=== PATIENT | male | born 1945 | race Caucasian/White ===

== ENCOUNTER → 2018-09-16 | Outpatient (CLI) | payer MEDICARE, BC ==
--- NOTE | 2018-09-16 12:45 | MR ---
EXAMINATION TYPE: MR shoulder RT wo con DATE OF EXAM: 09/16/2018 11:30 AM COMPARISON: NONE HISTORY: Right shoulder pain TECHNIQUE: Multiplanar multispin echo imaging of the right shoulder was performed. FINDINGS: Rotator cuff : Full thickness retracted tear of the supraspinatus tendon at its critical zone with fl uid filled gap of 2 cm. No evidence for muscular atrophy. Remaining constituents of the rotator cuff are intact. Bursa: Subacromial subdeltoid fluid identified. Musculature: There is no muscular tear, contusion, or atrophy. Acromioclavicular joint : Moderate AC joint arthropathy. Small subacromial spur. Osseous structures : There are no fractures or regions of abnormal bone marrow signal intensity. Long biceps tendon : The biceps tendon is normally situated within the bicipital groove. No complete or partial biceps tendon tear is present. Glenohumeral Joint fluid : There is no glenohumeral joint effusion. Cartilage and Bone : No focal hyaline cartilage defects are noted. No Hill-Sachs, reverse Hill-Sachs, or bony Bankart lesions are seen. Labrum : There are no SLAP or soft tissue Bankart lesions. No paralabral cysts are seen. OTHER FINDINGS : none IMPRESSION: 1. Full thickness retracted tear of the supraspinatus tendon at its critical zone with fluid filled g ap of 2 cm.
== END | disposition home or self-care (01) ==
LOC: RADMRIMAIN 10:41
PROVIDERS: ATTEND Orthopaedic Surgery
DX: M75.121 Complete rotator cuff tear or rupture of right shoulder, not specified as traumatic (principal)

== ENCOUNTER → 2018-11-04 | Day surgery (SDC) | payer MEDICARE, BC ==
[2018-11-01 15:58] VITALS: BMI 28.4
[~2018-11-04] MED LIST: DEXAMETHASONE SOD PHOSPHATE 10 MG/ML 1 ML VIAL IV ONE; DEXAMETHASONE SOD PHOSPHATE 4 MG/ML 1 ML VIAL ONE; HYDROcodone/APAP 7.5-325MG 1 EACH TAB PO ONE; HYDROmorphone 0.5 MG/0.5 ML SYRINGE IVP PRN; LACTATED RINGERS 1,000 ML IV ONE; LACTATED RINGERS 1,000 ML IV SCH; LIDOCAINE 1% 20 ML VIAL (10MG/ML) FOR IV START INTRADERMA PRN; LIDOCAINE 1% INJ 10MG/ML (20 ML MDV) ONE; MELOXICAM 7.5 MG TAB PO ONE; MIDAZOLAM (PF) 2 MG/2 ML VIAL IVP ONE; ONDANSETRON 4 MG/2 ML VIAL IVP ONE; PROPOFOL 10 MG/ML 20 ML VIAL IV ONE; ROPIVACAINE 5 MG/ML 30 ML VIAL ONE; SCOPOLAMINE 1.5MG/72HR PATCH TRANSDERM ONE; SUCCINYLCHOLINE CHLORIDE 100 MG/5 ML SYR IV ONE; ceFAZolin IN SWFI 2 GM/20 ML SYRINGE IVP ONE; ePHEDrine SULFATE/0.9% NACL/PF 50 MG/5 ML SYRINGE IV ONE; fentaNYL (PF) 50 MCG/ML 2 ML AMP ONE
--- NOTE | 2018-11-04 07:57 | P.ONQ ---
Anesthesiology Proc Note - PNB - Peripheral Nerve Block Performed Right Interscalene Single Time Out Performed: Yes Procedure Start Time: 07:05 Procedure Stop Time: 07:10 Indication: Acute Post-Operative Pain, Analgesia, Requested by physician Sedation Type: Sedate with meaningful contact maintained Preparation: Sterile Prep Position: Supine Catheter: None Needle Types: On-Q Needle Size: 50mm (2") Needle Gauge: 21 Technique: Ultrasound Injectate: 0.5% Ropivacaine (see comment for volume) (4mg dexamethasone) Blood Aspirated: No Pain Paresthesia on Injection Noted: No Resistance on Injection: Normal Events: Uneventful and Well Tolerated
--- NOTE | 2018-11-04 10:18 | P.OP ---
Date of Procedure: 11/04/18 Procedure(s) Performed: PREOPERATIVE DIAGNOSES: 1. Right shoulder large retracted rotator cuff tear. 2. Chronic impingement syndrome. 3. Acromioclavicular osteoarthritis. 4. Superior labral degenerative tear 5. Long head biceps tendinopathy. POSTOPERATIVE DIAGNOSES: 1. Right shoulder large retracted rotator cuff tear (supraspinatus and infraspinatus, 2.5 cm, retracted past glenoid with poor posterior leaflet mobility). 2. Chronic impingement syndrome. 3. Acromioclavicular osteoarthritis. 4. Labral degenerative tear. 5. Moderate to severe adhesive capsulitis PROCEDURES PERFORMED: 1. Right shoulder arthroscopy with rotator cuff repair (margin convergence with one anchor, partial repair) 2. Arthroscopic partial distal clavicle excision 3. Arthroscopic lysis of adhesions with capsular release and manipulation under anesthesia 4. Arthroscopic subacromial decompression 5. Arthroscopic debridement superior labral tear ANESTHESIA: General. ESTIMATED BLOOD LOSS: Less than 25 mL TOURNIQUET: None DINING ROOM SERVER: Debra Daily PA-C (assistance with: Positioning, retraction, camera operation, repair, closure, dressing) COMPLICATIONS: None. DISPOSITION: To postanesthesia care unit INDICATIONS: Mr. Jennings is a 73 year old male with a history of large rotator cuff tear. MRI was suspicious for a tear with retraction and cuff atrophy, and the patient wishes to have it repaired. He understands the difficulties associated with repair of a retracted rotator cuff tear and understands that there is the possibility of being unable to fully repair the tear. I have examined the patient in the office and proposed rotator cuff repair via an arthroscopic or mini-open approach, as well as other procedures to optimize the shoulder and outcome, such as decompression of spurs and debridement of loose or degenerated tissue. I have explained the risks of this surgery as being inclusive of, but not limited to: bleeding, infection, scarring, discomfort, blood vessel and/or nerve damage, need for further surgery, stiffness, persistence or worsening of p roblems, , and other risks. The consent form has been completed and signed. PROCEDURE: Appropriate consent was obtained from the patient. The patient was taken to the operating room and placed in the supine position. General anesthesia was initiated and after confirmation of adequate anesthesia, the patients right shoulder was examined. Initial range of motion showed flexion to 140 abduction to 140, external rotation to 30 and internal rotation to 30. Using Codman's paradox maneuver, the right shoulder was gently stretched and final range of motion after the stretch was for flexion to 180 , abduction to 180, external rotation to 75, and internal rotation to 75 with the arm at 90 abduction. The shoulder was stable. Next, the patient was rotated into the lateral decubitus position and stabilized to the table with a vasquez bag and padded straps. Care was taken to make sure that all pressure points were adequately padded. Bear-hugger was used along with bilateral leg sequential compression devices. Prepping and draping was completed in the usual aseptic fashion using ChloraPrep. The patient received intravenous antibiotics prior to incision. The shoulder was suspended from traction with 10 lbs. of weight in a position of 45 degrees abduction. Landmarks were outlined with a skin marking pen. A spinal needle was inserted into the glenohumeral joint and fluid was administered to distend the joint. A posterior portal was created using an 11 blade and the arthroscopic canula, over a dull trocar, was carefully inserted into the joint. Arthroscopy then comm enced. Blood was cleared from the joint from the previous manipulation under anesthesia. An anterior portal was inserted in the rotator interval area using inside-out technique. Biceps tendon showed moderate tendinopathy without full tear. Shaver was used to smooth the degenerated portion of the biceps within the joint. Subscapularis and teres minor attachments were relatively normal, for age. Hyaline cartilage of the glenoid and humeral head showed degenerative changes typical for age. Supraspinatus and infraspinatus attachments showed a full-thickness retracted tear, U-shaped. The anterior undersurface of the acromion could clearly be seen through the rotator cuff defect. No loose bodies were noted in the joint. Labrum showed circumferential degenerative changes without significant instability. Superior labrum was well attached. Negative peel back sign. Loose fibers of labrum in all areas were debrided away back to stable labrum. Capsular release was finished using a co mbination of biting forceps, shaver, and radiofrequency ablator. Synovitis was noted superior to the superior labrum and within the rotator interval. This was debrided and removed where the capsule appeared inflamed, using an arthroscopic shaver. Attention was then directed to the subacromial space. The camera and instruments were redirected into the subacromial space and bursoscopy was perfor med. The patients bursa was inflamed and thickened, indicating chronic bursitis. There also appear to be significant degenerative adhesions present within the lateral gutter anterior gutter and posterior gutter. These adhesions were lysed using a shaver and radiofrequency and attention was paid to meticulous hemostasis with the ArthroCare device. A lateral portal was created using outside-in technique. The rotator cuff tear was noted to be a U-shaped tear, with retraction past the level of the glenoid, with appeared to be a very deficient anterior leaflet. The posterior leaflet was poorly mobile, and therefore using a combination of angled elevator, shaver, and ArthroCare device, the adhesions between the inferior and superior surfaces of the posterior leaflet/conjoined tendon were released however, this did not improve mobility very much. The anterior leaflet was composed of very deficient tissue , without a robust appearance. The loose fibers of the tear were debrided back to stable tissue and the defect in the tendon was repaired arthroscopically after careful preparation of the supraspinatus footprint with gurdeep and rasp to create a good bleeding surface of bone, see below. The undersurface of the acromion had frictional changes consistent with severe and chronic impingement syndrome. The underside of the acromion anteriorly was cleared of soft tissue using an arthroscopic radiofrequency ablator. Care was taken while using the ablator not to exceed 40 degrees Centigrade within the bursa. The frictional changes of the rotator cuff matched exactly the location of the rotator cuff tear in the critical zone. A formal subacromial decompression was performed using a gurdeep. Approximately 5.5 mm of material was removed from the anterior-inferior corner of the acromion. This resection was beveled upwards laterally, and carried to the AC joint. The AC joint appeared arthritic with inferior spurring. This spurring was removed with a gurdeep, co- planing the resection with the acromial resection and removing approximately 5 to 6 mm of inferior distal clavicle maximally. The rotator cuff tear was then repaired as follows. Preparation of the supraspinatus footprint was performed using hand rasps , gurdeep, and shaver. This created a bleeding surface without significant decortication. 2 margin convergence sutures using #2 FiberWire were deployed into the medial portion of the rotator cuff and were tied down using alternating half hitches arthroscopically. This significantly reduced the volume of the tear. Next, the posterior leaflet was repaired using a fiber tape suture deployed into a 4.75 mm swivel lock anchor which was placed in the greater tuberosity. The leaflet was reduced using a tag stitch to mobilize the leaflet as much as possible in a lateral and anterior direction however as previously noted the leaflet had very poor mobility and therefore was not able to fully cover the supraspinatus footprint. Loose cuff material adjacent to the fiber tape was tacked down using the accessory stitch within the anchor. Suture tails were then cut. It was noted that there was incomplete closure of the cuff defect, but the volume of the tear had been significantly reduced and the posterior leaflet appeared to be well stabilized to the greater tuberosity. The repair was stable to rotation. Subsequently, 4-0 Monocryl was used to close the portal holes. Steri-strips were applied as well as sterile dressing. The shoulder was then placed into a sling and the patient was transferred to recovery room in stable condition. Sponge and needle counts were correct.
[2018-11-04 10:20] VITALS: TEMP 97.4
[2018-11-04 12:36] VITALS: BP 127/73; PULSE 49; RESP 17
== END | disposition home or self-care (01) ==
LOC: OR 06:17
PROVIDERS: ATTEND Orthopaedic Surgery
DX: S46.011A Strain of muscle(s) and tendon(s) of the rotator cuff of right shoulder, initial encounter (principal); S43.431A Superior glenoid labrum lesion of right shoulder, initial encounter; M75.41 Impingement syndrome of right shoulder; M75.01 Adhesive capsulitis of right shoulder; E78.5 Hyperlipidemia, unspecified; I73.1 Thromboangiitis obliterans [Buerger's disease]; M19.011 Primary osteoarthritis, right shoulder; Z87.891 Personal history of nicotine dependence; I25.10 Atherosclerotic heart disease of native coronary artery without angina pectoris; I10 Essential (primary) hypertension; K21.9 Gastro-esophageal reflux disease without esophagitis; W03.XXXA Other fall on same level due to collision with another person, initial encounter; Z95.5 Presence of coronary angioplasty implant and graft; I25.2 Old myocardial infarction
CPT/HCPCS: 64415; 29827; 29826; 29824; C1713 ×2; C1894; J1100 ×2; J2405; J2001; J3010; J2795; J0330; J2704; J0690; J2250

== ENCOUNTER 2019-11-13 09:32 | Emergency (ER) | payer MEDICARE, BC ==
[2019-11-13 09:38] VITALS: RESP 18
[2019-11-13] MEDS ORDERED: MORPHINE SULFATE 4 MG/ML SYRINGE IVP STA (09:54)
[2019-11-13] MEDS ORDERED: SODIUM CHLORIDE 0.9% 1,000 ML IV ONE ×2 (09:54→11:32)
--- NOTE | 2019-11-13 10:04 | ED ---
Abdominal Pain HPI - General Chief Complaint: Abdominal Pain Stated Complaint: Sent by pcp Time Seen by Provider: 11/13/19 09:42 Source: patient, RN notes reviewed, old records reviewed Mode of arrival: ambulatory Limitations: no limitations - History of Present Illness Initial Comments: Patient is a 74-year-old male who presents emergency department today for evaluation with complaints of cramping abdominal pain and multiple episodes of diarrhea for the past 2 days. Patient states that he's had no specific fevers. Denies any history of sick contacts or exposure to known Covid contact. Patient reports that he's had no vomiting but is in place some mild nausea. - Related Data Home Medications Medication Instructions Recorded Confirmed Atorvastatin [Lipitor] 80 mg PO HS 05/20/14 11/13/19 Lisinopril [Zestril] 10 mg PO DAILY 05/20/14 11/13/19 Nitroglycerin Sl Tabs [Nitrostat] 0.4 mg SUBLINGUAL Q5H PRN 05/20/14 11/13/19 Aspirin EC [Ecotrin Low Dose] 81 mg PO DAILY 01/31/16 11/13/19 Cholecalciferol [Vitamin D3] 2,000 unit PO DAILY 01/31/16 11/13/19 Donepezil [Aricept] 5 mg PO HS 01/31/16 11/13/19 Omeprazole [PriLOSEC] 20 mg PO AC-BRKFST 11/01/18 11/13/19 Metoprolol Tartrate [Lopressor] 12.5 mg PO BID 11/13/19 11/13/19 Previous Rx's Medication Instructions Recorded Ciprofloxacin HCl [Cipro] 500 mg PO Q12HR 10 Days #20 tab 11/13/19 metroNIDAZOLE [Flagyl] 500 mg PO TID #30 tab 11/13/19 Allergies Allergy/AdvReac Type Severity Reaction Status Date / Time No Known Allergies Allergy Verified 11/13/19 09:35 Review of Systems ROS Statement: Those systems with pertinent positive or pertinent negative responses have been documented in the HPI. ROS Other: All systems not noted in ROS Statement are negative. Past Medical History Past Medical History: Diabetes Mellitus, Hyperlipidemia, Hypertension, Myocard ial Infarction ([place]) Additional Past Medical History / Comment(s): buergers disease, "prediabetic- diet controlled", hx rheumatic fever Last Myocardial Infarction Date:: 2014 History of Any Multi-Drug Resistant Organisms: None Reported Past Surgical History: Appendectomy, Heart Catheterization With Stent, Tonsillectomy Additional Past Surgical History / Comment(s): toe amputation, liver Past Anesthesia/Blood Transfusion Reactions: No Reported Reaction Date of Last Stent Placement:: 2014 Past Psychological History: No Psychological Hx Reported Smoking Status: Former smoker Past Alcohol Use History: None Reported Past Drug Use History: None Reported - Past Family History Son(s) Family Medical History: Cancer Additional Family Medical History / Comment(s): leukemia General Exam - General Exam Comments Initial Comments: General: Well appearing, well nourished, in no distress. Oriented x 3, normal mood and affect . Ambulating without difficulty. Skin: Good turgor, no rash, unusual bruising or prominent lesions Hair: Normal texture and distribution. HEENT: Head: Normocephalic, atraumatic, no visible or palpable masses, depressions, or scaring. Eyes: Visual acuity intact, conjunctiva clear, sclera non-icteric, EOM intact, PERRL. Ears: EACs clear, TMs translucent & cone of light visualized. hearing intact. Nose: No external lesions, mucosa non-inflamed, septum and turbinates normal Mouth: Mucous membranes moist, no mucosal lesions. Teeth/Gums: No obvious caries or periodontal disease. No gingival inflammation or significant resorption. Pharynx: Mucosa non-inflamed, no tonsillar hypertrophy or exudate Neck: Supple, without lesions, bruits, or adenopathy, thyroid non-enlarged and non-tender Heart: No cardiomegaly or thrills; regular rate and rhythm, no murmur or gallop Lungs: Clear to auscultation and percussion Abdomen: Patient has tenderness over the right upper quadrant and left lower quadrant. Back: Spine normal without deformity or tenderness, no CVA tenderness Rectal: Normal sphincter tone, no hemorrhoids or masses palpable Extremities: No amputations or deformities, cyanosis, edema or varicosities, peripheral pulses intact Musculoskeletal: Normal gait and station. No misalignment, asymmetry, crepitation, defects, tenderness, masses, effusions, decreased range of motion, instability, atrophy or abnormal strength or tone in the head, neck, spine, ribs, pelvis or extremities. Neurologic: CN 2-12 normal. Sensation to pain, touch, and proprioception normal. DTRs normal in upper and lower extremities. No pathologic reflexes. Psychiatric: Oriented X3, intact recent and remote memory, judgment and insight, normal mood and affect. Limitations: no limitations Course Vital Signs 11/13/19 11/13/19 09:35 13:26 Temperature 98.2 F 98.0 F Pulse Rate 95 82 Respiratory 18 18 Rate Blood Pressure 134/82 136/77 O2 Sat by Pulse 96 98 Oximetry Medical Decision Making - Medical Decision Making 74-year-old male presents emergency department today for evaluation for cramping abdominal pain, fevers and diarrhea for the past 3 days. Patient has no cough shortness of breath. Family called their concern for possible Crohn flares. He's had no known exposures. Patient does have some right and left lower quadrant tenderness. Patient had labwork obtained. As well as computed tomogra phy scan. Computed tomography scan shows evidence of colitis, an enlarged prostate. Correlating for cystitis. UA shows no signs of infection. Patient will be started on Cipro and Flagyl for concern for colitis. Chest x-ray was reviewed and unremarkable and patient's labs were showed mild leukocytosis but no other inflammatory changes normal lactic acid and She panel is unremarkable. I advised Patient to call have close follow-up with primary care physician and return parameters were discussed. - Lab Data Result diagrams: 11/13/19 10:01 11/13/19 10:01 Lab Results 11/13/19 11/13/19 11/13/19 Range/Units 10:01 10:01 10:01 WBC 12.6 H (3.8-10.6) k/uL RBC 5.42 (4.30-5.90) m/uL Hgb 15.7 (13.0-17.5) gm/dL Hct 48.4 (39.0-53.0) % MCV 89.3 (80.0-100.0) fL MCH 28.9 (25.0-35.0) pg MCHC 32.4 (31.0-37.0) g/dL RDW 13.4 (11.5-15.5) % Plt Count 225 (150-450) k/uL Neutrophils % 80 % Lymphocytes % 10 % Monocytes % 7 % Eosinophils % 1 % Basophils % 0 % Neutrophils # 10.1 H (1.3-7.7) k/uL Lymphocytes # 1.2 (1.0-4.8) k/uL Monocytes # 0.9 (0-1.0) k/uL Eosinophils # 0.1 (0-0.7) k/uL Basophils # 0.0 (0-0.2) k/uL PT 10.7 (9.0-12.0) sec INR 1.0 (<1.2) APTT 22.3 (22.0-30.0) sec Sodium 137 (137-145) mmol/L Potassium 4.1 (3.5-5.1) mmol/L Chloride 102 (98-107) mmol/L Carbon Dioxide 24 (22-30) mmol/L Anion Gap 11 mmol/L BUN 21 H (9-20) mg/dL Creatinine 1.08 (0.66-1.25) mg/dL Est GFR (CKD-EPI)AfAm 78 (>60 ml/min/1.73 sqM) Est GFR (CKD-EPI)NonAf 67 (>60 ml/min/1.73 sqM) Glucose 116 H (74-99) mg/dL Calcium 9.2 (8.4-10.2) mg/dL Magnesium 2.0 (1.6-2.3) mg/dL Total Bilirubin 1.1 (0.2-1.3) mg/dL AST 33 (17-59) U/L ALT 28 (4-49) U/L Alkaline Phosphatase 64 (38-126) U/L Total Protein 7.5 (6.3-8.2) g/dL Albumin 4.4 (3.5-5.0) g/dL Amylase 51 (30-110) U/L Lipase 54 (23-300) U/L Urine Color Urine Appearance (Clear) Urine pH (5.0-8.0) Ur Specific [place] (1.001-1.035) Urine Protein (Negative) Urine Glucose (UA) (Negative) Urine Ketones (Negative) Urine Blood (Negative) Urine Nitrite (Negative) Urine Bilirubin (Negative) Urine Urobilinogen (<2.0) mg/dL Ur Leukocyte Esterase (Negative) Coronavirus (PCR) (Not Detected) 11/13/19 11/13/19 Range/Units 11:43 12:55 WBC (3.8-10.6) k/uL RBC (4.30-5.90) m/uL Hgb (13.0-17.5) gm/dL Hct (39.0-53.0) % MCV (80.0-100.0) fL MCH (25.0-35.0) pg MCHC (31.0-37.0) g/dL RDW (11.5-15.5) % Plt Count (150-450) k/uL Neutrophils % % Lymphocytes % % Monocytes % % Eosinophils % % Basophils % % Neutrophils # (1.3-7.7) k/uL Lymphocytes # (1.0-4.8) k/uL Monocytes # (0-1.0) k/uL Eosinophils # (0-0.7) k/uL Basophils # (0-0.2) k/uL PT (9.0-12.0) sec INR (<1.2) APTT (22.0-30.0) sec Sodium (137-145) mmol/L Potassium (3.5-5.1) mmol/L Chloride (98-107) mmol/L Carbon Dioxide (22-30) mmol/L Anion Gap mmol/L BUN (9-20) mg/dL Creatinine (0.66-1.25) mg/dL Est GFR (CKD-EPI)AfAm (>60 ml/min/1.73 sqM) Est GFR (CKD-EPI)NonAf (>60 ml/min/1.73 sqM) Glucose (74-99) mg/dL Calcium (8.4-10.2) mg/dL Magnesium (1.6-2.3) mg/dL Total Bilirubin (0.2-1.3) mg/dL AST (17-59) U/L ALT (4-49) U/L Alkaline Phosphatase (38-126) U/L Total Protein (6.3-8.2) g/dL Albumin (3.5-5.0) g/dL Amylase (30-110) U/L Lipase (23-300) U/L Urine Color Yellow Urine Appearance Clear (Clear) Urine pH 5.5 (5.0-8.0) Ur Specific [place] >1.050 H (1.001-1.035) Urine Protein Trace H (Negative) Urine Glucose (UA) Negative (Negative) Urine Ketones Trace H (Negative) Urine Blood Negative (Negative) Urine Nitrite Negative (Negative) Urine Bilirubin Negative (Negative) Urine Urobilinogen <2.0 (<2.0) mg/dL Ur Leukocyte Esterase Negative (Negative) Coronavirus (PCR) Not Detected (Not Detected) 11/13/19 10:16 EKG performed at 1008 shows normal sinus rhythm, rate block. Abnormal ECG. Ventricular rate of 83 beats right.. Was 168 ms. She jain is 140 ms. QT QTc is 414/46 ms. - Radiology Data Radiology results: report reviewed CT shows correlate for colitis and diverticulosis. Prostatic enlargement. Possible chronic lateral outlet obstruction changes. Correlate to exclude cystitis. Disc herniation and there is degenerative changes and visualized spine. Dr. Tk Morris. Disposition Clinical Impression: Colitis Disposition: HOME SELF-CARE Condition: Good Instructions (If sedation given, give patient instructions): Colitis (ED) Additional Instructions: Patient is a clear liquid diet for the next day and then advance to bananas rice applesauce and toast diet. Follow-up with PCP. Return to emergency department if any alarming signs or symptoms occur. Prescriptions: Ciprofloxacin HCl [Cipro] 500 mg PO Q12HR 10 Days #20 tab metroNIDAZOLE [Flagyl] 500 mg PO TID #30 tab Is patient prescribed a controlled substance at d/c from ED?: No Referrals: Guanaco Brown MD [Primary Care Provider] - 1-2 days Time of Disposition: 12:45
[2019-11-13 10:14] LABS: Basophils % (A) 0 %; Eosinophils # (A) 0.1 k/uL (0-0.7); Eosinophils % (A) 1 %; HCT 48.4 % (39.0-53.0); HGB 15.7 gm/dL (13.0-17.5); Lymphocytes # (A) 1.2 k/uL (1.0-4.8); Lymphocytes % (A) 10 %; MCH 28.9 pg (25.0-35.0); MCHC 32.4 g/dL (31.0-37.0); MCV 89.3 fL (80.0-100.0); Mean Platelet Volume 8.2; Monocytes # (A) 0.9 k/uL (0-1.0); Monocytes % (A) 7 %; Neutrophils # (A) 10.1 k/uL (1.3-7.7); Neutrophils % (A) 80 %; Platelet Count 225 k/uL (150-450); RBC 5.42 m/uL (4.30-5.90); RDW 13.4 % (11.5-15.5); WBC 12.6 k/uL (3.8-10.6)
[2019-11-13 10:24] LABS: Albumin 4.4 g/dL (3.5-5.0); Calcium 9.2 mg/dL (8.4-10.2); Partial Thromboplastin Time 22.3 sec (22.0-30.0); Potassium 4.1 mmol/L (3.5-5.1); Prothrombin Time 10.7 sec (9.0-12.0); Total Bilirubin 1.1 mg/dL (0.2-1.3); Total Protein 7.5 g/dL (6.3-8.2)
--- NOTE | 2019-11-13 11:19 | CT ---
EXAMINATION TYPE: CT abdomen pelvis w con DATE OF EXAM: 11/13/2019 COMPARISON: CT dated 01/31/2016 HISTORY: diarrhea CT DLP: 657.3 mGycm Automated exposure control for dose reduction was used. TECHNIQUE: Helical acquisition of images from the lung bases through the pelvis have been completed. CONTRAST: Performed without Oral Contrast and with IV Contrast, patient injected with 100 mL of Isovue 300. FINDINGS: LUNG BASES: No significant abnormality is appreciated. AORTA: Atheromatous changes are present in the aortoiliac distribution.. LIVER/GB: No significant interval change is appreciated. PANCREAS: No significant abnormality is seen. SPLEEN: No significant abnormality is seen. ADRENALS: No significant abnormality is seen. KIDNEYS: No significant abnormality is seen. REPRODUCTIVE ORGANS: Prostate shows some associated calcification and is enlarged. BOWEL: Fluid content noted in small and large bowel, question some colonic wall thickening along the ascending colon and transverse colon. Diverticular change noted within the sigmoid colon. FREE AIR: No Free Air visible. ASCITES: None visible. PELVIC ADENOPATHY: None visualized. RETROPERITONEAL ADENOPATHY: No Retroperitoneal Adenopathy visible. URINARY BLADDER: Urinary bladder shows a thickened wall possibly due to chronic outlet obstruction, correlate to exclude cystitis. OSSEOUS STRUCTURES: Degenerative disc changes are present in the lumbar spine. Suspect disc herniati on at the left neural foramen L5-S1.. IMPRESSION: CORRELATE FOR POSSIBLE COLITIS. DIVERTICULOSIS. PROSTHETIC ENLARGEMENT, POSSIBLE CHRONIC LATERAL OUTL ET OBSTRUCTION CHANGE. CORRELATE TO EXCLUDE CYSTITIS. POSSIBLE DISC HERNIATION, THERE ARE DEGENERATIV E DISC CHANGES PRESENT IN THE VISUALIZED SPINE.
[2019-11-13 12:04] LABS: Appearance,Urine Clear (Clear); Bilirubin,Urine Negative (Negative); Blood,Urine Negative (Negative); Color,Urine Yellow; Glucose,Urine (UA) Negative (Negative); Ketones,Urine Trace (Negative); Leukocyte Esterase,Urine Negative (Negative); Nitrite,Urine Negative (Negative); PH, Urine 5.5 (5.0-8.0); Protein,Urine Trace (Negative); Urobilinogen,Urine <2.0 mg/dL (<2.0)
[2019-11-13 12:24] LABS: Specific Gravity,Urine >1.050 (1.001-1.035)
[2019-11-13] MEDS ORDERED: metroNIDAZOLE 500 MG TAB PO STA (12:51)
[2019-11-13] MEDS ORDERED: CIPROFLOXACIN HCL 500 MG TAB PO STA (12:51)
--- NOTE | 2019-11-13 13:10 | XR ---
EXAMINATION TYPE: XR chest 2V DATE OF EXAM: 11/13/2019 COMPARISON: Prior chest x-ray 05/20/2014 HISTORY: pain, body aches, diarrhea TECHNIQUE: Frontal and lateral views of the chest are obtained. FINDINGS: There is no focal air space opacity, pleural effusion, or pneumothorax seen. The cardiac silhouette size is within normal limits. The osseous structures are intact. Prominent lung lines co uld be indicative of underlying COPD. IMPRESSION: No acute cardiopulmonary process.
[2019-11-13 13:28] VITALS: BP 136/77; PULSE 82; TEMP 98
== END 2019-11-13 13:28 | disposition home or self-care (01) ==
LOC: EC 09:32
DX: K52.9 Noninfective gastroenteritis and colitis, unspecified (principal); E11.9 Type 2 diabetes mellitus without complications; E78.5 Hyperlipidemia, unspecified; I10 Essential (primary) hypertension; I25.2 Old myocardial infarction; Z79.899 Other long term (current) drug therapy; Z79.82 Long term (current) use of aspirin; Z87.891 Personal history of nicotine dependence; Z80.6 Family history of leukemia; Z11.59 Encounter for screening for other viral diseases; Z90.49 Acquired absence of other specified parts of digestive tract; Z90.89 Acquired absence of other organs; Z95.5 Presence of coronary angioplasty implant and graft
CPT/HCPCS: 36415; 93005; 80053; 82150; 83690; 83735; 85025; 85610; 85730; 81003; 71046; 74177; 99285; 96374; 96361 ×2; U0003; J2270; Q9967

== ENCOUNTER → 2020-02-05 | Outpatient (CLI) | payer BC, MEDICARE ==
--- NOTE | 2020-02-05 09:42 | US ---
EXAMINATION TYPE: US duplex aorta DATE OF EXAM: 02/05/2020 COMPARISON: CT 2019 CLINICAL HISTORY: Z13.6 Abdominal Aorta Aneurysm Screening. Lower abdomen pain EXAM MEASUREMENTS: Abdominal Aorta: Proximal: 2.3 x 2.3cm Mid: 1.7 x 1.8cm Distal: 1.4 x 1.7cm Right Iliac: 1.0 x 1.0cm Left Iliac: 1.0 x 1.0cm IMPRESSION: 1. Aorta tapers normally through its visualized course. No aneurysmal dilatation is evident.
== END | disposition home or self-care (01) ==
LOC: RADUSWWP 07:00
PROVIDERS: ATTEND Physician Assistant
DX: Z13.6 Encounter for screening for cardiovascular disorders (principal)
CPT/HCPCS: 93979

== ENCOUNTER → 2021-04-28 | Outpatient (CLI) | payer MEDICARE ==
[2021-04-28 16:32] LABS: ALT 32 U/L (10-49); AST 28 U/L (14-35); Chol/HDL Ratio 3.28 Ratio; LDL Cholesterol,Calculated 49.3 mg/dL (0.0-131.0); VLDL Calculation 19.48 mg/dL (5.00-40.00)
== END | disposition home or self-care (01) ==
LOC: LABWHC1 09:43
PROVIDERS: ATTEND Internal Medicine
DX: E78.2 Mixed hyperlipidemia (principal)
CPT/HCPCS: 36415; 80061; 84450; 84460

== ENCOUNTER 2022-06-15 14:55 | Observation (INO) | payer MEDICARE ==
[2022-06-15] MEDS ORDERED: SODIUM CHLORIDE 0.9% 500 ML 500 ML IV STA (15:04)
[2022-06-15 15:08] LABS: Glucose,Whole Blood 107 mg/dL (70-110)
--- NOTE | 2022-06-15 15:10 | ED ---
General Adult HPI - General Chief complaint: Neuro Symptoms/Deficit Stated complaint: Near syncope Time Seen by Provider: 06/15/22 15:00 Source: patient, family, RN notes reviewed, old records reviewed Mode of arrival: ambulatory Limitations: no limitations - History of Present Illness Initial comments: This is a 76-year-old male who presents to the emergency part in stating he was working on a carburetor when he got very lightheaded and knew we had to sit down or else he would fall down. Patient states she started having left sided posterior neck pain that radiating into his head and he started having a severe left-sided headache. Patient states he never actually passed out but for a minute he thought he might. Patient denies any numbness or weakness. Patient denies slurred speech. Patient always has a droopy right eyelid which she state s was there since . Patient's states that he has a slight droop to his smile which is not normally there. Patient denies any recent fever chills or cough per patient has any abdominal pain patient nausea vomiting diarrhea. Patient denies feeling dizzy now or having any near syncopal experience currently - Related Data Home Medications Medication Instructions Recorded Confirmed Atorvastatin [Lipitor] 80 mg PO HS 05/20/14 06/15/22 Aspirin EC [Ecotrin Low Dose] 81 mg PO DAILY 01/31/16 06/15/22 Donepezil [Aricept] 5 mg PO HS 01/31/16 06/15/22 Omeprazole [PriLOSEC] 20 mg PO DAILY 11/01/18 06/15/22 Tamsulosin HCl [Flomax] 0.4 mg PO BID 06/15/22 06/15/22 cilostazoL [Pletal] 100 mg PO BID 06/15/22 06/15/22 lisinopriL [Zestril] 10 mg PO DAILY 06/15/22 06/15/22 Allergies Allergy/AdvReac Type Severity Reaction Status Date / Time No Known Allergies Allergy Verified 11/13/19 09:35 Review of Systems ROS Statement: Those systems with pertinent positive or pertinent negative responses have been documented in the HPI. ROS Other: All systems not noted in ROS Statement are negative. Past Medical History Past Medical History: Diabetes Mellitus, Hyperlipidemia, Hypertension, Myocardial Infarction ([place]) Additional Past Medical History / Comment(s): buergers disease, "prediabetic- diet controlled", hx rheumatic fever Last Myocardial Infarction Date:: 2014 History of Any Multi-Drug Resistant Organisms: None Reported Past Surgical History: Appendectomy, Heart Catheterization With Stent, Tonsille ctomy Additional Past Surgical History / Comment(s): toe amputation, liver Past Anesthesia/Blood Transfusion Reactions: No Reported Reaction Date of Last Stent Placement:: 2014 Past Psychological History: No Psychological Hx Reported Past Alcohol Use History: None Reported Past Drug Use History: None Reported - Past Family History Son(s) Family Medical History: Cancer Additional Family Medical History / Comment(s): leukemia General Exam - General Exam Comments Initial Comments: GENERAL: Patient is well-developed and well-nourished. Patient is nontoxic and well- hydrated and is in mild distress. ENT: Neck is soft and supple. No significant lymphadenopathy is noted. Oropharynx is clear. Moist mucous membranes. Neck has full range of motion without eliciting any pain. EYES: The sclera were anicteric and conjunctiva were pink and moist. Extraocular movements were intact and pupils were equal round and reactive to light. Eyelids were unremarkable. PULMONARY: Unlabored respirations. Good breath sounds bilaterally. No audible rales rhonchi or wheezing was noted. CARDIOVASCULAR: There is a regular rate and rhythm without any murmurs gallops or rubs. ABDOMEN: Soft and nontender with normal bowel sounds. SKIN: Skin is clear with no lesions or rashes and otherwise unremarkable. NEUROLOGIC: Patient is alert and oriented x3. Patient has a little bit of facial droop at the right lip. Motor and sensory are also intact. Normal speech, volume and content. Symmetrical smile. Cerebellar exam grossly intact. Patient's NIH is 1 MUSCULOSKELETAL: Normal extremities with adequate strength and full range of motion. No lower extremity swelling or edema. No calf tenderness. LYMPHATICS: No significant lymphadenopathy is noted PSYCHIATRIC: Normal psychiatric evaluation. Limitations: no limitations Course Vital Signs 06/15/22 06/15/22 06/15/22 15:02 15:05 15:15 Temperature 97.9 F 97.9 F Pulse Rate 111 H 96 Respiratory 20 16 Rate Blood Pressure 123/68 170/87 O2 Sat by Pulse 96 97 Oximetry 06/15/22 06/15/22 06/15/22 15:30 16:30 17:30 Temperature Pulse Rate 87 80 92 Respiratory 18 26 H 18 Rate Blood Pressure 112/60 139/69 141/98 O2 Sat by Pulse 95 95 95 Oximetry 06/15/22 06/15/22 18:00 20:01 Temperature Pulse Rate 78 83 Respiratory 16 18 Rate Blood Pressure 135/72 111/46 O2 Sat by Pulse 94 L 94 L Oximetry Medical Decision Making - Medical Decision Making EKG is interpreted by myself. EKG shows a sinus rhythm at 97 bpm SD interval 280 QRSs 146 QT interval is 421 QTC is 476. Patient's EKG shows a left bundle branch block. When patient arrived this was paged out as a code alteplase Was pt. sent in by a medical professional or institution (, PA, CITY MAINTENANCE MANAGER, urgent care, hospital, or [place] health care facility...) When possible be specific @ -No Did you speak to anyone other than the patient for history (EMS, parent, family, police, friend...)? What history was obtained from this source @ - contributed to history by describing his baseline and changes she is seeing currently Did you review nursing and triage notes (agree or disagree)? Why? @ -I reviewed and agree with nursing and triage notes Were old charts reviewed (outside hosp., previous admission, EMS record, old EKG, old radiological studies, urgent care reports/EKG's, [place] health care facility records)? Report findings @ -No old charts were reviewed Differential Diagnosis (chest pain, altered mental status, abdominal pain women, abdominal pain men, vaginal bleeding, weakness, fever, dyspnea, syncope, headache, dizziness, GI bleed, back pain, seizure, CVA, palpatations, mental health)? @ -Differential Headache: Migraine, tension, cluster, carbon monoxide, central venous thrombosis, pension karma temporal arteritis, acute closure glaucoma, intercranial hemorrhage, mastoiditis, sinusitis, head injury, this is not meant to be an all-inclusive list. EKG interpreted by me (3pts min.). @ -As above X-rays interpreted by me (1pt min.). @ -Chest x-ray shows no acute abnormality and was interpreted by me. CT interpreted by me (1pt min.). @ -CT of the brain was read by me showed no acute abnormality. CT of the head and neck was interpreted by the radiologist and they saw no acute caused the patient's symptoms at this time U/S interpreted by me (1pt. min.). @ -None done What testing was considered but not performed or refused? (CT, X-rays, U/S, labs)? Why? @ - What meds were considered but not given or refused? Why? @ -Alteplase WAS considered initially however the patient's NIH was only 1 and then eventually the NH went to 0 and I decided not to do alteplase in cons ultation with the neurointerventionalist Did you discuss the management of the patient with other professionals (professionals i.e. , PA, CITY MAINTENANCE MANAGER, lab, RT, psych nurse, social security specialist, wanigan clerk, teacher, associate loan officer, employment evaluator/case manager)? Give summary @ -The neurointerventionalist as well as sound physician's I agreed to admit the patient admitted the patient consult the neurology Was smoking cessation discussed for >3mins.? @ -No Was critical care preformed (if so, how long)? @ -No Were there social determinants of health that impacted care today? How? (Homelessness, low income, unemployed, alcoholism, drug addiction, transportation, low edu. Level, literacy, decrease access to med. care, half-way, rehab)? @ -No Was there de-escalation of care discussed even if they declined (Discuss DNR or withdrawal of care, Hospice)? DNR status @ -No What co-morbidities impacted this encounter? (DM, HTN, Smoking, COPD, CAD, Cancer, CVA, ARF, Chemo, Hep., AIDS, mental health diagnosis, sleep apnea, morbi d obesity)? @ -None Was patient admitted / discharged? Hospital course, mention meds given and route, prescriptions, significant lab abnormalities, going to OR and other pertinent info. @ -Patient will be admitted. Patient did get a CT CTA. Patient's symptoms completely resolved in the emergency department. I spoke the neurointerventiona list he did not want alteplase and I was in agreement with this. I eventually spoke with sound physician's after all the scans and labs were done and admitted the patient. I consult the neurology Undiagnosed new problem with uncertain prognosis? @ -No Drug Therapy requiring intensive monitoring for toxicity (Heparin, Nitro, Insulin, Cardizem)? @ -No Were any procedures done? @ -No Diagnosis/symptom? @ -TIA Acute, or Chronic, or Acute on Chronic? @ -Acute Uncomplicated (without systemic symptoms) or Complicated (systemic symptoms)? @ -Complicated Side effects of treatment? @ -No Exacerbation, Progression, or Severe Exacerbation? @ -No Poses a threat to life or bodily function? How? (Chest pain, USA, ME, pneumonia, PE, COPD, DKA, ARF, appy, cholecystitis, CVA, Diverticulitis, Homicidal, Suicidal, threat to staff... and all critical care pts) @ -As this poses a threat to bile function in life. Diagnosis/symptom? @ -Syncope Acute, or Chronic, or Acute on Chronic? @ -Acute Uncomplicated (without systemic symptoms) or Complicated (systemic symptoms)? @ -Complicated Side effects of treatment? @ -none Exacerbation, Progression, or Severe Exacerbation] @ -no Poses a threat to life or bodily function? @ -no - Lab Data Result diagrams: 06/15/22 14:59 06/15/22 14:59 Lab Results 06/15/22 06/15/22 06/15/22 Range/Units 14:59 14:59 14:59 WBC 11.6 H (3.8-10.6) k/uL RBC 5.16 (4.30-5.90) m/uL Hgb 15.2 (13.0-17.5) gm/dL Hct 45.1 (39.0-53.0) % MCV 87.5 (80.0-100.0) fL MCH 29.4 (25.0-35.0) pg MCHC 33.6 (31.0-37.0) g/dL RDW 13.1 (11.5-15.5) % Plt Count 230 (150-450) k/uL MPV 8.5 Neutrophils % 78 % Lymphocytes % 12 % Monocytes % 6 % Eosinophils % 1 % Basophils % 0 % Neutrophils # 9.1 H (1.3-7.7) k/uL Lymphocytes # 1.4 (1.0-4.8) k/uL Monocytes # 0.7 (0-1.0) k/uL Eosinophils # 0.1 (0-0.7) k/uL Basophils # 0.0 (0-0.2) k/uL PT 10.2 (9.0-12.0) sec INR 1.0 (<1.2) APTT 22.9 (22.0-30.0) sec Sodium 138 (137-145) mmol/L Potassium 4.4 (3.5-5.1) mmol/L Chloride 104 (98-107) mmol/L Carbon Dioxide 26 (22-30) mmol/L Anion Gap 8 mmol/L BUN 22 H (9-20) mg/dL Creatinine 1.40 H (0.66-1.25) mg/dL Est GFR (CKD-EPI)AfAm 56 (>60 ml/min/1.73 sqM) Est GFR (CKD-EPI)NonAf 49 (>60 ml/min/1.73 sqM) Glucose 119 H (74-99) mg/dL POC Glucose (mg/dL) (70-110) mg/dL POC Glu Network Security Engineer ID Calcium 9.6 (8.4-10.2) mg/dL Total Bilirubin 0.9 (0.2-1.3) mg/dL AST 37 (17-59) U/L ALT 35 (4-49) U/L Alkaline Phosphatase 85 (38-126) U/L Troponin I (0.000-0.034) ng/mL Total Protein 7.8 (6.3-8.2) g/dL Albumin 4.8 (3.5-5.0) g/dL 06/15/22 06/15/22 Range/Units 14:59 15:07 WBC (3.8-10.6) k/uL RBC (4.30-5.90) m/uL Hgb (13.0-17.5) gm/dL Hct (39.0-53.0) % MCV (80.0-100.0) fL MCH (25.0-35.0) pg MCHC (31.0-37.0) g/dL RDW (11.5-15.5) % Plt Count (150-450) k/uL MPV Neutrophils % % Lymphocytes % % Monocytes % % Eosinophils % % Basophils % % Neutrophils # (1.3-7.7) k/uL Lymphocytes # (1.0-4.8) k/uL Monocytes # (0-1.0) k/uL Eosinophils # (0-0.7) k/uL Basophils # (0-0.2) k/uL PT (9.0-12.0) sec INR (<1.2) APTT (22.0-30.0) sec Sodium (137-145) mmol/L Potassium (3.5-5.1) mmol/L Chloride (98-107) mmol/L Carbon Dioxide (22-30) mmol/L Anion Gap mmol/L BUN (9-20) mg/dL Creatinine (0.66-1.25) mg/dL Est GFR (CKD-EPI)AfAm (>60 ml/min/1.73 sqM) Est GFR (CKD-EPI)NonAf (>60 ml/min/1.73 sqM) Glucose (74-99) mg/dL POC Glucose (mg/dL) 107 (70-110) mg/dL POC Glu Network Security Engineer ID [place], Eddie Calcium (8.4-10.2) mg/dL Total Bilirubin (0.2-1.3) mg/dL AST (17-59) U/L ALT (4-49) U/L Alkaline Phosphatase (38-126) U/L Troponin I 0.034 (0.000-0.034) ng/mL Total Protein (6.3-8.2) g/dL Albumin (3.5-5.0) g/dL Critical Care Time Critical Care Time: Yes Total Critical Care Time: 35 Disposition Clinical Impression: Transient cerebral ischemia, Syncope Disposition: ADMITTED IP TO THIS [facility] Time of Disposition: 19:33
[2022-06-15 15:22] LABS: Basophils % (A) 0 %; Eosinophils # (A) 0.1 k/uL (0-0.7); Eosinophils % (A) 1 %; HCT 45.1 % (39.0-53.0); HGB 15.2 gm/dL (13.0-17.5); Lymphocytes # (A) 1.4 k/uL (1.0-4.8); Lymphocytes % (A) 12 %; MCH 29.4 pg (25.0-35.0); MCHC 33.6 g/dL (31.0-37.0); MCV 87.5 fL (80.0-100.0); Mean Platelet Volume 8.5; Monocytes # (A) 0.7 k/uL (0-1.0); Monocytes % (A) 6 %; Neutrophils # (A) 9.1 k/uL (1.3-7.7); Neutrophils % (A) 78 %; Platelet Count 230 k/uL (150-450); RBC 5.16 m/uL (4.30-5.90); RDW 13.1 % (11.5-15.5); WBC 11.6 k/uL (3.8-10.6)
--- NOTE | 2022-06-15 15:29 | CT ---
EXAMINATION TYPE: CT brain wo con for TPA CT DLP: 1154.6 mGycm, Automated exposure control for dose reduction was used. DATE OF EXAM: 06/15/2022 3:19 PM COMPARISON: None. CLINICAL INDICATION:Male, 76 years old with history of Neuro deficit, acute, stroke suspected, Code s troke code alteplase Rt side facial droop TECHNIQUE: Brain: Axial CT images of the brain were obtained with coronal and sagittal reformats created and rev iewed. Contrast used: None. Oral contrast used: None. FINDINGS: Brain: Extra-axial spaces: No abnormal extra-axial fluid collections. 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 Ventricular system: Within normal limits. Cerebral parenchyma: No acute intraparenchymal hemorrhage or mass effect. The jose-white junction is well differentiated. Scattered hypoattenuating areas are seen within the white matter. Cerebellum: Unremarkable. Mass effect: No evidence of midline shift. Intracranial vasculature: Atherosclerotic calcifications of the intracranial vessels. Soft tissues: Normal. Calvarium/osseous structures: No depressed skull fracture. Paranasal sinuses and mastoid air cells: Mild scattered paranasal sinus disease. Visualized orbits: Orbital contents are intact. Findings communicated to Dr. Doyle Moreno MD on 06/15/2022 3:[address] Bulmaro Thomas. IMPRESSION: 1. No acute intracranial process. 2. Nonspecific white matter changes, likely secondary to chronic small vessel ischemic disease.
[2022-06-15 15:35] LABS: Partial Thromboplastin Time 22.9 sec (22.0-30.0); Prothrombin Time 10.2 sec (9.0-12.0)
[2022-06-15 15:47] LABS: Albumin 4.8 g/dL (3.5-5.0); Calcium 9.6 mg/dL (8.4-10.2); Potassium 4.4 mmol/L (3.5-5.1); Total Bilirubin 0.9 mg/dL (0.2-1.3); Total Protein 7.8 g/dL (6.3-8.2)
--- NOTE | 2022-06-15 15:59 | CT ---
EXAMINATION TYPE: CT angio head neck CT DLP: 587 mGycm, Automated exposure control for dose reduction was used. DATE OF EXAM: 06/15/2022 3:33 PM COMPARISON: CT head same day. CLINICAL INDICATION:Male, 76 years old with history of Neuro deficit, acute, stroke suspected TECHNIQUE: Axially acquired helical CT angiogram of the head and neck was obtained with contrast. Axi al images are supplemented with 3D reconstructions which were post-processed at an independent [facility]st [facility]. NASCET criteria used. Contrast used:100 cc of Isovue-370 Oral contrast used: None. FINDINGS: CTA HEAD: No evidence of acute intracranial hemorrhage, mass effect, or midline shift. The ventricles, sulci, a nd cisterns are unremarkable. The visualized portions of the internal carotid arteries, middle cerebral arteries, anterior cerebral arteries, and posterior cerebral arteries are patent. Atherosclerosis of the intracranial internal c arotid arteries without hemodynamically significant stenosis. The basilar and vertebral arteries are patent. Minimal intracranial vertebral artery calcified athero sclerosis. The left vertebral artery is dominant. CTA NECK: Right Carotid System: The common carotid artery and external carotid artery are patent. The carotid bifurcation demonstrate s calcified plaque with 25% stenosis. The remaining portions of the internal carotid artery demonstra te normal size without significant narrowing. Left Carotid System: The common carotid artery and external carotid artery are patent. The carotid bifurcation demonstrate s calcified plaque with 25% stenosis. The remaining portions of the internal carotid artery demonstra te normal size without significant narrowing. Vertebral arteries are patent without evidence hemodynamically significant stenosis. There is a three-vessel aortic arch. The origins of the great vessels are patent. No evidence of hemo dynamically significant stenosis. IMPRESSION: 1. No evidence of dissection of the cervical internal carotid arteries or vertebral arteries. 2. No evidence of intracranial high-grade stenosis or intracranial aneurysm. 3. Predominantly calcified atherosclerosis at the carotid bifurcations with 25% stenosis bilaterally.
--- NOTE | 2022-06-15 16:00 | XR ---
EXAMINATION TYPE: XR chest 2V DATE OF EXAM: 06/15/2022 3:56 PM COMPARISON: Chest radiographs from 11/13/2019 TECHNIQUE: XR chest 2V Frontal and lateral views of the chest. CLINICAL INDICATION:Male, 76 years old with history of altered mental status; FINDINGS: Lungs/Pleura: Low lung volumes are present. There is no evidence of pleural effusion, focal consolida tion, or pneumothorax. Pulmonary vascularity: Unremarkable. Heart/mediastinum: Cardiomediastinal silhouette is unremarkable. Musculoskeletal: No acute osseous pathology. IMPRESSION: No acute cardiopulmonary disease/process.
[2022-06-15] MEDS: ATORVASTATIN 80 MG TAB PO SCH (20:38)
[2022-06-15] MEDS ORDERED: SODIUM CHLORIDE 0.9% 1,000 ML IV ONE (22:49)
[2022-06-15] MEDS: SODIUM CHLORIDE 0.9% 1,000 ML IV SCH (23:02)
--- NOTE | 2022-06-16 02:16 | P.HPIM ---
History of Present Illness H&P Date: 06/15/22 Chief Complaint: lightheaded and dizzy 76 year old male with h/o CAD s/p stents, PAD patient was doing some work in his garage, when felt lightheaded and about to black out couple times during the day , he admits that he always exhaust himself and goes without food and drink for extended periods. he eventually got very dizzy and lightheaded, felt warm and decided to sit down, thats when he thinks he might have passes out for few seconds. he denies falling , or head injury , denies any palpitations, SOB, chest pain , denies falling on the ground, he does not think he had a seizure , denies any similar events in the past, he denies any tongue biting , loss of bladder or bowel control. patient then started experiencing headache, and left sided neck pain, he denies any focal neuro deficits, denies any weakness, numbness or tingling. denies any changes in his vision. 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 CT of the brain , and CTA head and neck no acute pathology . 25% stenosis of bilateral carotid artery blood work showed elevated creatinine , suggestive of GLENN. EKG showed LBBB which is not new compared to old EKG Review of Systems Pertinent positives as noted in HPI. All other systems were reviewed and are n egative Past Medical History Past Medical History: Diabetes Mellitus, Hyperlipidemia, Hypertension, Myocardial Infarction ([place]) Additional Past Medical History / Comment(s): buergers disease, "prediabetic- diet controlled", hx rheumatic fever Last Myocardial Infarction Date:: 2014 History of Any Multi-Drug Resistant Organisms: None Reported Past Surgical History: Appendectomy, Heart Catheterization With Stent, Tonsillectomy Additional Past Surgical History / Comment(s): toe amputation, liver Past Anesthesia/Blood Transfusion Reactions: No Reported Reaction Date of Last Stent Placement:: 2014 Past Psychological History: No Psychological Hx Reported Past Alcohol Use History: None Reported Past Drug Use History: None Reported - Past Family History Son(s) Family Medical History: Cancer Additional Family Medical History / Comment(s): leukemia Medications and Allergies Home Medications Medication Instructions Recorded Confirmed Type Atorvastatin [Lipitor] 80 mg PO HS 05/20/14 06/15/22 History Aspirin EC [Ecotrin Low Dose] 81 mg PO DAILY 01/31/16 06/15/22 History Donepezil [Aricept] 5 mg PO HS 01/31/16 06/15/22 History Omeprazole [PriLOSEC] 20 mg PO DAILY 11/01/18 06/15/22 History Tamsulosin HCl [Flomax] 0.4 mg PO BID 06/15/22 06/15/22 History cilostazoL [Pletal] 100 mg PO BID 06/15/22 06/15/22 History lisinopriL [Zestril] 10 mg PO DAILY 06/15/22 06/15/22 History Allergies Allergy/AdvReac Type Severity Reaction Status Date / Time No Known Allergies Allergy Verified 11/13/19 09:35 Physical Exam Vitals: Vital Signs Temp Pulse Pulse Resp BP BP Pulse Ox 06/15/22 20:34 98.1 F 75 18 139/66 96 06/15/22 20:01 83 18 111/46 94 L 06/15/22 18:00 78 16 135/72 94 L 06/15/22 17:30 92 18 141/98 95 06/15/22 16:30 80 26 H 139/69 95 06/15/22 15:30 87 18 112/60 95 06/15/22 15:15 96 16 170/87 97 06/15/22 15:05 97.9 F 111 H 20 123/68 96 06/15/22 15:02 97.9 F Intake and Output 06/15/22 06/15/22 06/15/22 06:59 14:59 22:59 Intake Total 20 Balance 20 Intake: IV 20 Invasive Line 1 10 Invasive Line 2 10 Other: Weight 86.364 kg Constitutional: No acute distress, conversant, pleasant Eyes: Anicteric sclerae, moist conjunctiva, Pupils equal round reactive to light ENMT: NC/AT Oropharynx clear, no erythema, or exudates Neck: Supple, no masses, or JVD, No carotid bruits, No thyromegaly Lungs: Clear to auscultation Clear to percussion Normal respiratory effort, no accessory muscle use Cardiovascular: Heart regular in rate and rhythm, No murmurs, gallops, or rubs No peripheral edema Abdominal: Soft Nontender, no guarding, rebound or rigidity Abdomen moving with respiration Normoactive bowel sounds No hepatomegaly, No splenomegaly No palpable mass No abdominal wall hernia noted Skin: Normal temperature, tone, texture, turgor No induration No subcutaneous nodules No rash, lesions No ulcers Extremities: No digital cyanosis No clubbing Pedal pulses intact and symmetrical Radial pulses intact and symmetrical No calf tenderness Psychiatric: Alert and oriented to person, place and time Appropriate affect fair judgment Neuro Muscles Strength 5/5 in all 4 extremities Sensation to light touch grossly present throughout Cranial nerves II-XII grossly intact finger nose test intact, heel cartwright intact Lymphatics: no palpable cervical or supraclavicular lymph nodes Results CBC & Chem 7: 06/15/22 14:59 06/15/22 14:59 Labs: Abnormal Lab Results - Last 24 Hours (Table) 06/15/22 06/15/22 Range/Units 14:59 14:59 WBC 11.6 H (3.8-10.6) k/uL Neutrophils # 9.1 H (1.3-7.7) k/uL BUN 22 H (9-20) mg/dL Creatinine 1.40 H (0.66-1.25) mg/dL Glucose 119 H (74-99) mg/dL Assessment and Plan Assessment: vasovagal event secondary to dehydration , rule out underlying neurologic disorder TIA CT brain and CTA head and neck no acute pathology , bilateral carotid stenosis of 25% neurochecks postural vitals IVF hydration with normal saline check echo PT eval neuro eval GLENN hold ACEI monitor urine output IVF hydration with normal saline monitor electrolytes h/o CAD and PAD resume ASA, ,statin , pletal full code DVT PPx scd
[2022-06-16 06:03] LABS: Glucose,Whole Blood 97 mg/dL (70-110)
[2022-06-16] MEDS: SODIUM CHLORIDE 0.9% 1,000 ML IV SCH ×2 (06:24→16:13)
[2022-06-16 08:13] LABS: African American GFR (CKD) >90 (>60 ml/min/1.73 sqM); Anion Gap 6 mmol/L; Blood Urea Nitrogen 19 mg/dL (9-20); Calcium 8.5 mg/dL (8.4-10.2); Carbon Dioxide 23 mmol/L (22-30); Chloride 109 mmol/L (98-107); Glucose 95 mg/dL (74-99); Non-African American GFR(CKD) 78 (>60 ml/min/1.73 sqM); Potassium 4.3 mmol/L (3.5-5.1); Sodium 138 mmol/L (137-145)
[2022-06-16] MEDS: PANTOPRAZOLE 40 MG TABLET PO SCH (08:14)
[2022-06-16] MEDS: cilostazoL 100 MG TAB PO SCH ×2 (08:14→20:50)
[2022-06-16] MEDS: TAMSULOSIN 0.4 MG CAP.ER.24H PO SCH ×2 (08:14→20:50)
[2022-06-16] MEDS: ASPIRIN 81 MG PO SCH (08:14)
[2022-06-16] MEDS ORDERED: lisinopriL 10 MG TAB PO SCH (09:00)
--- NOTE | 2022-06-16 11:07 | CA ---
Transthoracic Echo Report Name: Nakul Jennings Age: 76 Gender: M : 1945 Exam Date: 06/16/2022 09:22 Exam Location: [facility] Ht (in): 60 Wt (lb): 190 Ordering Physician: Isaías Triplett MD Attending/Referring Phys: [id number], Ioana Silica Mixer Operator Clara King RDCS Procedure CPT: Indications: vasovagal event Cardiac Hx: Technical Quality: Contrast 1: Total Dose (mL): Contrast 2: Total Dose (mL): MEASUREMENTS (Male / Female) Normal Values 2D ECHO LV Diastolic Diameter PLAX 5.1 cm 4.2 - 5.9 / 3.9 - 5.3 cm LV Systolic Diameter PLAX 4.0 cm IVS Diastolic Thickness 1.4 cm 0.6 - 1.0 / 0.6 - 0.9 cm LVPW Diastolic Thickness 1.5 cm 0.6 - 1.0 / 0.6 - 0.9 cm LV Relative Wall Thickness 0.6 RV Internal Dim ED PLAX 3.4 cm LA Systolic Diameter LX 4.1 cm 3.0 - 4.0 / 2.7 - 3.8 cm LV Diastolic Volume MOD BP 85.5 cm??? 67 - 155 / 56 - 104 cm??? LV Systolic Volume MOD BP 66.2 cm??? 22 - 58 / 19 - 49 cm??? LV Ejection Fraction MOD BP 22.6 % >= 55 % LV Diastolic Volume MOD 4C 90.2 cm??? LV Systolic Volume MOD 4C 63.9 cm??? LV Ejection Fraction MOD 4C 29.2 % LV Diastolic Length 4C 7.4 cm LV Systolic Length 4C 7.0 cm LV Diastolic Volume MOD 2C 81.9 cm??? LV Systolic Volume MOD 2C 66.0 cm??? LV Ejection Fraction MOD 2C 19.5 % LV Diastolic Length 2C 7.5 cm LV Systolic Length 2C 6.7 cm LA Volume 63.2 cm??? 18 - 58 / 22 - 52 cm??? M-MODE Aortic Root Diameter MM 2.6 cm LA Systolic Diameter MM 4.0 cm LA Ao Ratio MM 1.5 MV E Point Septal Separation 0.9 cm AV Cusp Separation MM 1.8 cm DOPPLER MV E' Velocity 4.0 cm/s TR Peak Velocity 248.9 cm/s TR Peak Gradient 24.8 mmHg Right Ventricular Systolic Press 29.8 mmHg FINDINGS Left Ventricle Mildly increased septal wall thickness. Mildly increased left ventricular systolic volume. Left ventricular cavity size normal. Left ventricular ejection fraction is estimated at 40-45 %. Right Ventricle Normal right ventricular size and function. Right ventricular systolic pressure within normal limits. Right Atrium Normal right atrial size. Left Atrium Mildly increased left atrial diameter. Mildly increased left atrial volume. Mitral Valve Structurally normal mitral valve. Mild mitral regurgitation. Aortic Valve Trileaflet aortic valve. Tricuspid Valve Structurally normal tricuspid valve. Mild tricuspid regurgitation. Pulmonic Valve Structurally normal pulmonic valve. Pericardium Echo free space anterior to the right ventricle likely represents a fat pad. Aorta Normal size aortic root and proximal ascending aorta. CONCLUSIONS The left ventricle is at upper limits of normal. There is mild global decrease in contractility with estimated ejection fraction of 45% range. Both atria are enlarged. There is mild mitral and tricuspid insufficiency. There is no clearcut pericardial effusion. There is aortic valve sclerosis without restriction!! Previewed by: Dr. Michael Luna MD (Electronically Signed) Final Date: 16 June 2022 11:06
--- NOTE | 2022-06-16 13:19 | P.PN ---
Subjective Progress Note Date: 06/16/22 Hospital Course: 76-year-old male with history of CAD status post stents, PAD presenting with presyncope/syncope. He is also complaining of headache as well as left-sided neck pain. Vital signs within normal limits except for tachycardia initially at 111. CT head, CTA head and neck did not show any acute pathology, 25% stenosis at carotid bifurcation bilaterally. EKG showed left bundle branch block. Chest x-ray showed no acute process. Echocardiogram reported as mild global decrease in contractility with EF 45%. Mild MR and TR, aortic valve sclerosis without stenosis. Subjective: Patient seen and examined at bedside. No acute events overnight. Denies any further lightheadedness or dizziness. He denies any chest pain, shortness of breath, abdominal pain, palpitations, urinary or bowel complaints. Pertinent positives and negatives as discussed above, a complete review of systems was performed and all other systems are negative. Vitals Signs Reviewed. General: nontoxic, no distress, appears at stated age Derm: warm, dry Head: atraumatic, normocephalic, symmetric Eyes: EOMI, no lid lag, anicteric sclera, right ptosis Mouth: no lip lesion, mucus membranes moist Cardiovascular: S1S2 reg, no murmur Lungs: CTA bilateral, no rhonchi, no rales , no accessory muscle use Abdominal: soft, nontender to palpation, no guarding, no appreciable organomegaly Ext: no gross muscle atrophy, no edema, no contractures Neuro: CN II-XI grossly intact, no focal neuro deficits Psych: Alert, oriented, appropriate affect Assessment and Plan: Presyncope/Syncope -Differential includes vasovagal, orthostatic, arrhythmia, TIA -Imaging mostly unremarkable -Echo showed LVEF 45%, no major valvular abnormalities -EKG showed left bundle branch block -Telemetry -Neuro checks -Orthostatic vitals still pending, patient already received some IV fluids -Cardiology and neurology consulted -PT/OT Acute kidney injury -Resolved -Continue to monitor urine output -Restarted lisinopril History of CAD and PAD -Continue home medications DVT ppx: Subcu heparin Code status: Full code Anticipated discharge place: Home Anticipated discharge time: Likely tomorrow Objective - Vital Signs Vital signs: Vital Signs Temp 98.1 F 06/16/22 11:23 Pulse 71 06/16/22 11:23 Resp 20 06/16/22 11:23 BP 119/67 06/16/22 11:23 Pulse Ox 93 L 06/16/22 11:23 FiO2 21 06/16/22 03:21 Intake & Output 06/15/22 06/16/22 06/16/22 18:59 06:59 18:59 Intake Total 20 Output Total 525 325 Balance -505 -325 Weight 86.364 kg 86.364 kg Intake: IV 20 Invasive Line 1 10 Invasive Line 2 10 Output: Urine 525 325 Other: Voiding Method Urinal - Labs CBC & Chem 7: 06/15/22 14:59 06/16/22 07:14 Labs: Abnormal Lab Results - Last 24 Hours (Table) 06/15/22 06/15/22 06/16/22 Range/Units 14:59 14:59 07:14 WBC 11.6 H (3.8-10.6) k/uL Neutrophils # 9.1 H (1.3-7.7) k/uL Chloride 109 H (98-107) mmol/L BUN 22 H (9-20) mg/dL Creatinine 1.40 H (0.66-1.25) mg/dL Glucose 119 H (74-99) mg/dL
[2022-06-16] MEDS ORDERED: ACETAMINOPHEN TAB 500 MG TAB PO PRN (15:34)
[2022-06-16] MEDS ORDERED: ALPRAZolam 0.5 MG TAB PO STA (15:34)
[2022-06-16 16:10] LABS: Chol/HDL Ratio 4.24 Ratio; LDL Cholesterol,Calculated 97.2 mg/dL (0.0-131.0); VLDL Calculation 15.08 mg/dL (5.00-40.00)
[2022-06-16] MEDS: lisinopriL 10 MG TAB PO SCH (16:12)
[2022-06-16] MEDS: HEPARIN SODIUM,PORCINE/PF 5,000 UNIT/0.5 ML SYRINGE SQ SCH (16:13)
[2022-06-16] MEDS: ATORVASTATIN 80 MG TAB PO SCH (20:50)
[2022-06-16] MEDS ORDERED: DONEPEZIL 5 MG TAB PO SCH (21:00)
[2022-06-16 23:01] VITALS: RESP 18
[2022-06-17] MEDS: HEPARIN SODIUM,PORCINE/PF 5,000 UNIT/0.5 ML SYRINGE SQ SCH ×2 (01:46→08:43)
[2022-06-17] MEDS: SODIUM CHLORIDE 0.9% 1,000 ML IV SCH ×2 (01:46→08:47)
[2022-06-17] MEDS: TAMSULOSIN 0.4 MG CAP.ER.24H PO SCH (08:43)
[2022-06-17] MEDS: cilostazoL 100 MG TAB PO SCH (08:43)
[2022-06-17] MEDS: lisinopriL 10 MG TAB PO SCH (08:43)
[2022-06-17] MEDS: PANTOPRAZOLE 40 MG TABLET PO SCH (08:43)
[2022-06-17] MEDS: ASPIRIN 81 MG PO SCH (08:43)
--- NOTE | 2022-06-17 09:23 | P.CNNES ---
History of Present Illness Consult date: 06/16/22 Requesting physician: Doyle Moreno Reason for Consult: TIA History of Present Illness: Patient is a 76-year-old right-handed male, with history of mild cognitive impairment, came to the hospital yesterday at 2:55 PM for syncopal spell and possible TIA. Patient's was also present, who provided with a history. Patient's states that for the last 4 days (since 06/10/2022), he has complained of blurred vision, headache involving back of the head (left occipital region) that radiates to the left shoulder, left arm all the way. He does have history of rotator cuff tear, with history of previous surgery on the right, and needs surgery on the left. His has noticed that for the last few days he is walking but unstable. He does not feel secure, as if he could trip. Apparently yesterday, patient was working on a tractor, trying to put a carburetor on the 4 potter. He felt he will pass out. He had this feeling of passing out 3 times, about 10 minutes apart. The third time he states that it came on hard, and he tried to grab the post, but had so much blurred vision, felt like as if there was no post there. As a result, he fell on the chair. If there was no chair, he would have fallen to the ground. He sat there for 5-10 minutes. Denies any tongue bite or loss of control of urine. He states his eyesight was okay, though had blurred vision. He went into the house and s tarted feeling slightly better. His noticed that his right side of the face was droopy, he has previously right lazy eye, which was worse than baseline. His speech was slightly slurred although he still could speak. Due to these reasons, she brought him to the hospital. Vital signs on arrival blood pressure 123/68, pulse rate 111, temperature 97.9. Blood test shows WBC 11.6 hemoglobin 15.2. Platelets are normal. PT/PTT, electrolytes normal. BUN/creatinine 22, creatinine 1.40. Hepatic panel normal, troponin negative. CT head revealed no acute intracranial process. Nonspecific white matter changes, likely secondary to chronic small vessel ischemic disease. I personally reviewed CT head, agree with the findings. No acute process. EKG shows sinus rhythm, left bundle branch block. At present his headache has improved between 3-4/10, but mostly around 2/10. His eyes are watering. He feels like something is in his left eye with increased blurred vision. He still feels dizzy but no numbness or tingling or weakness. Patient denies hypertension or diabetes patient was a heavy smoker, smoked 2 packs per day for 30 years, quit 30 years ago after he was diagnosed with Bu rger's disease. Patient states that he was alcoholic, used to drink a case of beer a day for 30 years, quit 20 years ago. He still does drink about 7-8 beers per week. Per his , he is still sometimes binge drinking when he is with his friends. His admits to patient with mild dementia but he is still fully functional, drives, most long, very active. Home medications include Lipitor 80 mg, donepezil 5 mg, aspirin 81 mg, lisinopril 10 mg, Pletal 100 mg twice a day and Flomax 0.4 mg twice a day. Patient denies any previous history of headache or migraine. Review of Systems Constitutional: Denies chills, Denies fever Eyes: bilateral blurred vision, bilateral irritation, denies diplopia, denies pain, denies loss of peripheral vision Ears: deny: ear discharge, earache Ears, nose, mouth and throat: Reports headache, Denies sore throat Cardiovascular: Denies chest pain, Denies shortness of breath Respiratory: Denies cough Gastrointestinal: Reports nausea, Denies abdominal pain, Denies diarrhea, Denies vomiting Musculoskeletal: Reports neck pain Integumentary: Denies pruritus, Denies rash Neurological: Reports as per HPI Psychiatric: Reports memory loss, Denies anxiety, Denies depression Endocrine: Denies fatigue, Denies weight change Hematologic/Lymphatic: Denies easy bruising Past Medical History Past Medical History: Diabetes Mellitus, Hyperlipidemia, Hypertension, Myocardial Infarction ([place]) Additional Past Medical History / Comment(s): buergers disease, "prediabetic- diet controlled", hx rheumatic fever Last Myocardial Infarction Date:: 2014 History of Any Multi-Drug Resistant Organisms: None Reported Past Surgical History: Appendectomy, Heart Catheterization With Stent, Tonsillectomy Additional Past Surgical History / Comment(s): toe amputation, liver Past Anesthesia/Blood Transfusion Reactions: No Reported Reaction Date of Last Stent Placement:: 2014 Past Psychological History: No Psychological Hx Reported Past Alcohol Use History: None Reported Past Drug Use History: None Reported - Past Family History Son(s) Family Medical History: Cancer Additional Family Medical History / Comment(s): leukemia Medications and Allergies Home Medications Medication Instructions Recorded Confirmed Type Atorvastatin [Lipitor] 80 mg PO HS 05/20/14 06/15/22 History Aspirin EC [Ecotrin Low Dose] 81 mg PO DAILY 01/31/16 06/15/22 History Donepezil [Aricept] 5 mg PO HS 01/31/16 06/15/22 History Omeprazole [PriLOSEC] 20 mg PO DAILY 11/01/18 06/15/22 History Tamsulosin HCl [Flomax] 0.4 mg PO BID 06/15/22 06/15/22 History cilostazoL [Pletal] 100 mg PO BID 06/15/22 06/15/22 History lisinopriL [Zestril] 10 mg PO DAILY 06/15/22 06/15/22 History Allergies Allergy/AdvReac Type Severity Reaction Status Date / Time No Known Allergies Allergy Verified 11/13/19 09:35 Physical Examination - Vital Signs Vital Signs: Vital Signs Temp Pulse Pulse Resp BP BP Pulse Ox 06/16/22 08:23 98.1 F 81 20 124/61 91 L 06/16/22 04:00 97.6 F 76 16 133/75 96 06/16/22 03:21 95 06/15/22 23:04 98.1 F 74 16 135/73 95 06/15/22 20:34 98.1 F 75 18 139/66 96 06/15/22 20:01 83 18 111/46 94 L 06/15/22 18:00 78 16 135/72 94 L 06/15/22 17:30 92 18 141/98 95 06/15/22 16:30 80 26 H 139/69 95 06/15/22 15:30 87 18 112/60 95 06/15/22 15:15 96 16 170/87 97 06/15/22 15:05 97.9 F 111 H 20 123/68 96 06/15/22 15:02 97.9 F FiO2 06/16/22 08:23 06/16/22 04:00 06/16/22 03:21 21 06/15/22 23:04 06/15/22 20:34 06/15/22 20:01 06/15/22 18:00 06/15/22 17:30 06/15/22 16:30 06/15/22 15:30 06/15/22 15:15 06/15/22 15:05 06/15/22 15:02 Intake and Output 06/15/22 06/16/22 06/16/22 22:59 06:59 14:59 Intake Total 20 Output Total 525 325 Balance 20 -525 -325 Intake: IV 20 Invasive Line 1 10 Invasive Line 2 10 Output: Urine 525 325 Other: Voiding Method Urinal Urinal Weight 86.364 kg Patient is an elderly male, in no acute distress. Patient is alert awake oriented to time place and person. Speech and language functions are normal. Patient can name and repeat very well. No aphasia or dysarthria. Attention, concentration and fund of knowledge is adequate. Detail cognitive function testing deferred. On cranial nerve examination, pupils are equal, round and reacting to light, visual mariano are full on confrontation, with no neglect on double simultaneous stimulation. Extraocular muscles are intact with no nystagmus. Patient has right ptosis. Face is symmetric, tongue protrudes to the midline. Palatal elevation and sensation normal, hearing and shoulder shrug normal, facial sensation normal. On muscle strength testing, there is very mild right pronator drift. The muscle strength is normal in arms and legs distally and proximally. Although he has history of right rotator cuff surgery and also has involvement of the left side, but the strength of deltoids are normal. Deep tendon reflexes are diminished, plantars downgoing. Sensory to touch is equal with no neglect on double simultaneous stimulation. Cerebellar function showed no ataxia for [id number] testing. No dysdiadochokinesia. No ataxia for [id number]-[id number] testing on either side. Tone and bulk of muscles normal. Gait deferred.. On general examination, there is no carotid bruit or murmur, S1-S2 audible. Chest is clear on consultation. Abdomen is soft nontender. No organomegaly, bowel sounds present. Peripheral pulses are present. No edema. Results - Laboratory Findings CBC and BMP: 06/15/22 14:59 06/16/22 07:14 Abnormal Lab Findings: Abnormal Labs 01/02/2706/15/22 06/16/22 14:59 14:59 07:14 WBC 11.6 H Neutrophils # 9.1 H Chloride 109 H BUN 22 H Creatinine 1.40 H Glucose 119 H Assessment and Plan Assessment: * Syncopal spell, with prior near syncopal spells 2. Possible vasovagal, versus orthostatic. * New onset cephalalgia, with left occipital headache extending to the left shoulder and left arm. Rule out occipital neuralgia/cervical radiculopathy. Rule out temporal arteritis * Blurred vision, unclear cause. * Hypertension, mild * X tobacco use * History of alcoholism Plan: * ESR, CRP, rule out temporal arteritis * Brain MRI, rule out CVA * Continue aspirin 81 mg for now. If the MRI confirm CVA, then patient will need DAPT. We will hold off on DAPT pending ESR (in case temporal artery biopsy is needed). * Fasting lipid panel, hemoglobin A1c, B12, folate * CTA of neck revealed no evidence of dissection of the cervical internal carotid arteries or vertebral arteries. Predominantly calcified atherosclerosis at the carotid bifurcation with 25% stenosis bilaterally. * CTA of the head showed no evidence of intracranial high-grade stenosis or intracranial aneurysm. * 2-D echo revealed left-ventricular size upper limits of normal. Mild global decrease in contractility with estimated EF of 45%. Both atria are enlarged. Mild mitral and tricuspid insufficiency. There is aortic valve sclerosis without restriction. * Telemetry monitoring so far showing PVC, bigeminy, sinus rhythm and bundle- branch block. * Neurology will follow. Thank you for the consult. Time with Patient: Greater than 30
--- NOTE | 2022-06-17 10:51 | P.CRDCN ---
History of Present Illness History of present illness: HISTORY OF PRESENT ILLNESS: This is a 76-year-old male with a past medical history significant for coronary artery disease with previous PCI of the RCA in 2013, left bundle-branch block, hypertension, hyperlipidemia, peripheral arterial disease, and mild cardiomyopa thy with an ejection fraction of 45%. Patient follows in the office with Dr. Johnson. We have been asked to see the patient in consultation for syncope. Patient examined at the bedside. Patient states he was in his garage working a machine. He was bent over and when he stood him he felt dizzy. He states he sat down in a chair for about 5 minutes. He got up and shortly after the same thing happened. He sat back down and rested. He got up once again and had a third episode of dizziness. He states he felt like he was in a fog. The patient denies any actual syncope. He states he has not been eating or drinking alot. He was found to have GLENN on admission. Orthostatics were obtained which were un remarkable. He denies chest pain or pressure. Denies SOB. He states his symptoms had all resolved by the time he came to the ER. * EKG reveals sinus mechanism with left bundle branch block. Left bundle-branch block present on previous EKG. * Chest xray negative for acute process * Laboratory data: WBC 11.6. Hemoglobin 15.2. Platelet count 230. Sodium 138. Potassium 4.3. BUN 19. Creatinine 0.95. * Current home cardiac medications include lisinopril 10 mg daily, aspirin 81 mg daily, Lipitor 80 mg at night, and Pletal 100 mg twice a day * Echocardiogram completed revealing ejection fraction 45%, mild global decrease in contractility, mild mitral and tricuspid insufficiency. No pericardial effusion. REVIEW OF SYSTEMS: At the time of my exam: CONSTITUTIONAL: Denies fever or chills. HEENT: Denies blurred vision, vision changes, or eye pain. Denies hemoptysis CARDIOVASCULAR: Denies chest pain. Denies orthopnea. Denies PND. Denies palpitations RESPIRATORY: Denies shortness of breath. GASTROINTESTINAL: Denies abdominal pain. Denies nausea or vomiting. HEMATOLOGIC: Denies bleeding disorders. GENITOURINARY: Denies any blood in urine. SKIN: Denies pruitis. Denies rash. PHYSICAL EXAM: VITAL SIGNS: Reviewed. GENERAL: Well-developed in no acute distress. HEENT: Head is normocephalic. Pupils are equal, round. Sclerae anicteric. Mucous membranes of the mouth are moist. Neck supple. No JVD or thyromegaly LUNGS: Respirations even and unlabored. Lungs essentially clear to auscultation bilaterally. HEART: Regular rate and rhythm. S1 and S2 heard. Systolic murmur noted. ABDOMEN: Soft. Nondistended. Nontender. EXTREMITIES: Normal range of motion. No clubbing or cyanosis. Peripheral pulses intact. No lower extremity edema NEUROLOGIC: Awake and alert. Oriented x 3. 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 Johnson Nurse practitioner note has been reviewed by physician. Signing provider agrees with the documented findings, assessment, and plan of care. Past Medical History Past Medical History: Diabetes Mellitus, Hyperlipidemia, Hypertension, Myocardial Infarction ([place]) Additional Past Medical History / Comment(s): buergers disease, "prediabetic- diet controlled", hx rheumatic fever Last Myocardial Infarction Date:: 2014 History of Any Multi-Drug Resistant Organisms: None Reported Past Surgical History: Appendectomy, Heart Catheterization With Stent, Tonsillectomy Additional Past Surgical History / Comment(s): toe amputation, liver Past Anesthesia/Blood Transfusion Reactions: No Reported Reaction Date of Last Stent Placement:: 2014 Past Psychological History: No Psychological Hx Reported Past Alcohol Use History: None Reported Past Drug Use History: None Reported - Past Family History Son(s) Family Medical History: Cancer Additional Family Medical History / Comment(s): leukemia Medications and Allergies Home Medications Medication Instructions Recorded Confirmed Type Atorvastatin [Lipitor] 80 mg PO HS 05/20/14 06/15/22 History Aspirin EC [Ecotrin Low Dose] 81 mg PO DAILY 01/31/16 06/15/22 History Donepezil [Aricept] 5 mg PO HS 01/31/16 06/15/22 History Omeprazole [PriLOSEC] 20 mg PO DAILY 11/01/18 06/15/22 History Tamsulosin HCl [Flomax] 0.4 mg PO BID 06/15/22 06/15/22 History cilostazoL [Pletal] 100 mg PO BID 06/15/22 06/15/22 History lisinopriL [Zestril] 10 mg PO DAILY 06/15/22 06/15/22 History Allergies Allergy/AdvReac Type Severity Reaction Status Date / Time No Known Allergies Allergy Verified 11/13/19 09:35 Physical Exam Vitals: Vital Signs Temp Pulse Resp BP BP BP BP 06/17/22 07:55 98.0 F 81 18 120/72 06/17/22 04:00 98.2 F 70 18 134/76 06/17/22 01:49 68 18 06/17/22 00:00 68 18 126/70 06/16/22 20:00 98.1 F 74 18 108/56 06/16/22 19:41 80 20 06/16/22 16:27 98.1 F 80 20 135/70 145/67 126/63 06/16/22 11:23 98.1 F 71 20 119/67 06/16/22 08:23 98.1 F 81 20 124/61 Pulse Ox 06/17/22 07:55 95 06/17/22 04:00 97 06/17/22 01:49 06/17/22 00:00 98 06/16/22 20:00 95 06/16/22 19:41 06/16/22 16:27 91 L 06/16/22 11:23 93 L 06/16/22 08:23 91 L Intake and Output 06/16/22 06/17/22 06/17/22 22:59 06:59 14:59 Intake Total 240 120 Output Total 350 Balance -110 120 Intake: Oral 240 120 Output: Urine 350 Other: Voiding Method Urinal Urinal # Voids 0 Results 06/15/22 14:59 06/16/22 07:14 Lipids 06/16/22 Range/Units 07:14 Triglycerides 75.40 (0.00-149.00) mg/dL Cholesterol 147.00 (0.00-200.00) mg/dL HDL Cholesterol 34.70 L (40.00-60.00) mg/dL Cholesterol/HDL Ratio 4.24 Ratio Comprehensive Metabolic Panel 06/16/22 Range/Units 07:14 Sodium 138 (137-145) mmol/L Potassium 4.3 (3.5-5.1) mmol/L Chloride 109 H (98-107) mmol/L Carbon Dioxide 23 (22-30) mmol/L BUN 19 (9-20) mg/dL Creatinine 0.95 (0.66-1.25) mg/dL Glucose 95 (74-99) mg/dL Calcium 8.5 (8.4-10.2) mg/dL Current Medications Generic Name Dose Route Start Last Admin Trade Name Freq PRN Reason Stop Dose Admin Acetaminophen 1,000 mg 06/16/22 15:34 06/16/22 16:12 Acetaminophen Tab 500 Mg Tab PO 1,000 mg Q8H PRN Administration Fever and/ or Pain Aspirin 81 mg 06/16/22 09:00 06/16/22 08:14 Aspirin 81 Mg PO 81 mg DAILY MASHA Administration Atorvastatin Calcium 80 mg 06/15/22 21:00 06/16/22 20:50 Atorvastatin 80 Mg Tab PO 80 mg HS MASHA Administration Cilostazol 100 mg 06/16/22 09:00 06/16/22 20:50 Cilostazol 100 Mg Tab PO 100 mg BID MASHA Administration Donepezil HCl 5 mg 06/16/22 21:00 06/16/22 22:31 Donepezil 5 Mg Tab PO Not Given HS [facility] Heparin Sodium (Porcine) 5,000 unit 06/16/22 16:00 06/17/22 01:46 Heparin Sodium,Porcine/Pf 5,000 Unit/0.5 Ml Syringe SQ Not Given Q8HR [facility] Sodium Chloride 1,000 mls @ 120 mls/hr 06/15/22 23:00 06/17/22 01:46 Saline 0.9% IV Not Given .Q8H20M MASHA Lisinopril 10 mg 06/16/22 13:30 06/16/22 16:12 Lisinopril 10 Mg Tab PO 10 mg DAILY MASHA Administration Pantoprazole Sodium 40 mg 06/16/22 09:00 06/16/22 08:14 Pantoprazole 40 Mg Tablet PO 40 mg DAILY MASHA Administration Tamsulosin HCl 0.4 mg 06/16/22 09:00 06/16/22 20:50 Tamsulosin 0.4 Mg Cap.Er.24h PO 0.4 mg BID MASHA Administration Intake and Output 06/16/22 06/17/2223 22:59 06:59 14:59 Intake Total 240 120 Output Total 350 Balance -110 120 Intake: Oral 240 120 Output: Urine 350 Other: Voiding Method Urinal Urinal # Voids 0 06/15/22 14:59 06/16/22 07:14
--- NOTE | 2022-06-17 11:08 | MR ---
EXAMINATION TYPE: MR brain wo con DATE OF EXAM: 06/17/2022 COMPARISON: CT brain 06/15/2022 HISTORY: Blurred vision, headache, evaluate for stroke. CONTRAST: Performed utilizing 0 mL intravenous Gadavist gadolinium contrast. TECHNIQUE: Multiplanar, multiecho imaging on a 3.0 Madonna magnet is performed through the brain. Stud y is performed within 24 hours of arrival to the hospital. The craniovertebral junction is normal. The pituitary is normal. Diffusion-weighted imaging is performed. No abnormal hyperintensity is present to suggest an acute i ntracranial infarct or acute ischemic change. There appears to be an arachnoid cyst within the left posterior fossa. There is some mild periventricular white matter hyperintensity, likely on the basis of chronic white matter ischemic changes Ventricles and sulci are appropriate for the patient age. There is some mucosal thickening or retention cyst within the right maxillary sinus. Minimal mucosal thickening is within the left maxillary sinus. Some mild mucosal thickening is present to the bilater al mid ethmoid air cells. Remaining paranasal sinuses and mastoid air cells are clear. IMPRESSIONS: 1. Chronic appearing periventricular white matter ischemic changes. 2. Arachnoid cyst left posterior fossa. 3. No suspicious acute intracranial changes.
[2022-06-17 11:32] VITALS: TEMP 97.4
--- NOTE | 2022-06-17 14:40 | P.PN ---
Subjective Progress Note Date: 06/17/22 Presyncope/Syncope Acute kidney injury History of CAD and PAD 76-year-old male with history of CAD status post stents, PAD presenting with presyncope/syncope. Initially in the ED, vital signs within normal limits except for tachycardia initially at 111. CT head, CTA head and neck did not show any acute pathology, 25% stenosis at carotid bifurcation bilaterally. EKG showed left bundle branch block. Chest x-ray showed no acute process. Echocardiogram reported as mild global decrease in contractility with EF 45%. Mild MR and TR, aortic valve sclerosis without stenosis. MRI of the brain shows chronic appearing small vessel age related changes. Pt discharged on ASA, atorvastatin. He will f/u with 30 days of holter monitoring. Pt will f/u with cardiology, neurology. Gen: awake, alert HEENT: normocephalic, atraumatic, good hearing acuity, moist mucous membranes Resp: good air exchange, breathing comfortably with no accessory muscle use CVS: good distal perfusion x 4, GI: soft, NTTP, ND : no SPT, no CVAT, barnes catheter not present MSK: no pitting edema, no clubbing Neuro: non-focal, moving all extremities Psych: cooperative, euthymic mood Objective - Vital Signs Vital signs: Vital Signs Temp 97.4 F L 06/17/22 11:32 Pulse 82 06/17/22 11:32 Resp 18 06/17/22 11:32 BP 141/72 06/17/22 11:32 Pulse Ox 93 L 06/17/22 11:32 FiO2 21 06/16/22 03:21 Intake & Output 06/16/22 06/17/22 06/17/22 18:59 06:59 18:59 Intake Total 1320 120 Output Total 1025 Balance 295 120 Intake: Intake, IV Titration 960 Amount Sodium Chloride 0.9% 1, 960 000 ml @ 120 mls/hr IV . Q8H20M [facility] Rx#:[id number] Oral 360 120 Output: Urine 1025 Other: Voiding Method Urinal # Voids 0 - Labs CBC & Chem 7: 06/15/22 14:59 06/16/22 07:14 Labs: Abnormal Lab Results - Last 24 Hours (Table) 06/16/22 Range/Units 07:14 HDL Cholesterol 34.70 L (40.00-60.00) mg/dL
[2022-06-17 15:38] VITALS: BP 121/58; PULSE 71
--- NOTE | 2022-06-17 23:50 | P.PN ---
Subjective Progress Note Date: 06/17/22 Patient was seen for a follow-up. Patient is ready for discharge. Patient's was also present. He is doing much better. Objective - Vital Signs Vital signs: Vital Signs Temp 97.4 F L 06/17/22 15:38 Pulse 71 06/17/22 15:38 Resp 18 06/17/22 15:38 BP 121/58 06/17/22 15:38 Pulse Ox 95 06/17/22 15:38 FiO2 21 06/16/22 03:21 Intake & Output 06/16/22 06/17/22 06/17/22 18:59 06:59 18:59 Intake Total 1320 120 Output Total 1025 Balance 295 120 Intake: Intake, IV Titration 960 Amount Sodium Chloride 0.9% 1, 960 000 ml @ 120 mls/hr IV . Q8H20M [facility] Rx#:[id number] Oral 360 120 Output: Urine 1025 Other: Voiding Method Urinal # Voids 0 - Exam Deferred. - Labs CBC & Chem 7: 06/15/22 14:59 06/16/22 07:14 Labs: Abnormal Lab Results - Last 24 Hours (Table) 06/16/22 Range/Units 07:14 HDL Cholesterol 34.70 L (40.00-60.00) mg/dL Assessment and Plan Assessment: * Syncopal spell, with prior near syncopal spells 2. Possible vasovagal, versus orthostatic. * New onset cephalalgia, with left occipital headache extending to the left shoulder and left arm. Rule out occipital neuralgia/cervical radiculopathy. Rule out temporal arteritis * Blurred vision, unclear cause. * Hypertension, mild * X tobacco use * History of alcoholism Plan: * ESR 7, CRP 0.9. No evidence of temporal arteritis * Brain MRI revealed no acute process. Chronic appearing periventricular white matter ischemic change. Arachnoid cyst left posterior fossa. I personally reviewed MRI, agree with the findings. * Continue aspirin 81 mg for now. Suggest increasing to aspirin 81 mg twice a day. Patient also on Pletal. * Fasting lipid panel cholesterol 147, LDL 97, HDL 34 and triglycerides 75. Continue Lipitor 80 mg daily. * Hemoglobin A1c 5.9, B12 488, folate 11.70 * Cardiology input appreciated. Patient placed on 30 day event monitor, and the results will follow-up with Dr. Johnson. * Orthostatics revealed supine blood pressure 126/63, sitting blood pressure 135/70 and standing 145/67. Orthostatics negative. * CTA of neck revealed no evidence of dissection of the cervical internal carotid arteries or vertebral arteries. Predominantly calcified atherosclerosis at the carotid bifurcation with 25% stenosis bilaterally. * CTA of the head showed no evidence of intracranial high-grade stenosis or intracranial aneurysm. * 2-D echo revealed left-ventricular size upper limits of normal. Mild global decrease in contractility with estimated EF of 45%. Both atria are enlarged. Mild mitral and tricuspid insufficiency. There is aortic valve sclerosis without restriction. * Telemetry monitoring so far showing sinus rhythm, sinus bradycardia in the 40s. * Recommend patient follow up with planer hand for blurred vision. * Neurologically clear for discharge. Addendum: 06/22/2022 Called patient's home, spoke to patient's on the phone. She mentions that patient is doing very well. He was seen by an eye doctor, and eyes are perfectly fine. Patient's was recommended to increase aspirin to 81 mg twice a day (for ?TIA), and follow up with Dr. Johnson regarding the echo results and event monitor report.
== END 2022-06-17 16:24 | disposition home or self-care (01) ==
LOC: EC 14:55 → 3SCARD 19:35 → INTOOBSV 19:35 → 3SCARD 06-17 03:22
PROVIDERS: ADMIT Internal Medicine; ATTEND Internal Medicine
DX: R55 Syncope and collapse (principal); N17.9 Acute kidney failure, unspecified; E86.0 Dehydration; R51.9 Headache, unspecified; R79.89 Other specified abnormal findings of blood chemistry; H53.8 Other visual disturbances; I11.9 Hypertensive heart disease without heart failure; I25.5 Ischemic cardiomyopathy; I73.1 Thromboangiitis obliterans [Buerger's disease]; R73.03 Prediabetes; E78.5 Hyperlipidemia, unspecified; I65.23 Occlusion and stenosis of bilateral carotid arteries; I08.3 Combined rheumatic disorders of mitral, aortic and tricuspid valves; I25.2 Old myocardial infarction; I44.7 Left bundle-branch block, unspecified; M54.2 Cervicalgia; I25.10 Atherosclerotic heart disease of native coronary artery without angina pectoris; I73.9 Peripheral vascular disease, unspecified; M75.102 Unspecified rotator cuff tear or rupture of left shoulder, not specified as traumatic; F03.A0 Unspecified dementia, mild, without behavioral disturbance, psychotic disturbance, mood disturbance, and anxiety; F10.21 Alcohol dependence, in remission; Z79.82 Long term (current) use of aspirin; Z79.02 Long term (current) use of antithrombotics/antiplatelets; Z79.899 Other long term (current) drug therapy; Z87.891 Personal history of nicotine dependence; Z90.49 Acquired absence of other specified parts of digestive tract; Z95.5 Presence of coronary angioplasty implant and graft; Z89.429 Acquired absence of other toe(s), unspecified side; Z98.890 Other specified postprocedural states; Z80.6 Family history of leukemia
CPT/HCPCS: 96372 ×2; 96360; 96361; 99291; 36415; 94760; 93005; 93306; 93270; 97162; 97166; 80061; 80053; 80048; 85652; 82607; 82746; 84484; 85025; 85610; 85730; 86140; 83036; 71046; 70496; 70450; 70498; 70551; G0378 ×2; Q9967; J1644 ×2

== ENCOUNTER → 2022-08-25 | Outpatient (CLI) | payer MEDICARE ==
[2022-08-25 17:05] LABS: ALT 37 U/L (10-49); AST 35 U/L (14-35)
[2022-08-25 17:19] LABS: Chol/HDL Ratio 3.17 Ratio; LDL Cholesterol,Calculated 59.7 mg/dL (0.0-131.0); VLDL Calculation 12.92 mg/dL (5.00-40.00)
== END | disposition home or self-care (01) ==
LOC: LABWHC1 08:45
PROVIDERS: ATTEND Internal Medicine
DX: E78.2 Mixed hyperlipidemia (principal)
CPT/HCPCS: 36415; 80061; 84450; 84460

== ENCOUNTER 2023-01-30 15:02 | Emergency (ER) | payer MEDICARE ==
[2023-01-30] MEDS ORDERED: DIPH,PERTUS(ACELL)TETVAC-LF 0.5 ML VIAL IM ONE (15:09)
[2023-01-30] MEDS ORDERED: HYDROmorphone 0.5 MG/0.5 ML SYRINGE IVP STA (15:09)
[2023-01-30] MEDS ORDERED: LIDOCAINE 1% INJ 10MG/ML (20 ML MDV) SQ ONE (15:35)
--- NOTE | 2023-01-30 16:13 | XR ---
Left hand. HISTORY: Pain following trauma with a chainsaw. COMPARISON: None TECHNIQUE: 4 views left hand were obtained. FINDINGS: There is no fracture, dislocation or intraosseous abnormality. There is mild degeneration of the inte rphalangeal joint of the thumb. There is no radiopaque foreign IMPRESSION: 1. No fracture or dislocation. 2. No radiopaque foreign body or abnormal soft tissue calcification.
[2023-01-30] MEDS ORDERED: HYDROcodone/APAP 5-325MG 1 EACH TAB PO STA (17:32)
--- NOTE | 2023-01-30 17:41 | ED ---
General Adult HPI - General Chief complaint: Trauma Stated complaint: CHAINSAW ACCIDENT Time Seen by Provider: 01/30/23 15:06 Source: patient, EMS, RN notes reviewed, old records reviewed Mode of arrival: EMS - History of Present Illness Initial comments: 77-year-old male with left hand injury. Patient was cutting down a limb of the tree, had a large limb fall on his left hand trapping his hand between the ladder rung and the limb. He was using a chainsaw but did not specifically injure himself with chainsaw. He had some minor abrasions, hand was in a leather glove. Patient has history of peripheral vascular disease as well as remote history of Buerger's disease - Related Data Home Medications Medication Instructions Recorded Confirmed Atorvastatin [Lipitor] 80 mg PO HS 05/20/14 06/15/22 Aspirin EC [Ecotrin Low Dose] 81 mg PO DAILY 01/31/16 06/15/22 Donepezil [Aricept] 5 mg PO HS 01/31/16 06/15/22 Omeprazole [PriLOSEC] 20 mg PO DAILY 11/01/18 06/15/22 Tamsulosin HCl [Flomax] 0.4 mg PO BID 06/15/22 06/15/22 cilostazoL [Pletal] 100 mg PO BID 06/15/22 06/15/22 lisinopriL [Zestril] 10 mg PO DAILY 06/15/22 06/15/22 Previous Rx's Medication Instructions Recorded Amoxic-Pot Clav 875-125Mg 1 tab PO Q12HR 10 Days #20 tab 01/30/23 [Augmentin 875-125] HYDROcodone/APAP 5-325MG [Fenton 1 tab PO Q6HR PRN #12 tab 01/30/23 5-325] Allergies Allergy/AdvReac Type Severity Reaction Status Date / Time No Known Allergies Allergy Verified 01/30/23 15:14 Review of Systems ROS Statement: Those systems with pertinent positive or pertinent negative responses have been documented in the HPI. ROS Other: All systems not noted in ROS Statement are negative. Past Medical History Past Medical History: Diabetes Mellitus, Hyperlipidemia, Hypertension, Myocardial Infarction (DC) Additional Past Medical History / Comment(s): buergers disease, "prediabetic- diet controlled", hx rheumatic fever Last Myocardial Infarction Date:: 2014 History of Any Multi-Drug Resistant Organisms: None Reported Past Surgical History: Appendectomy, Heart Catheterization With Stent, Tonsillectomy Additional Past Surgical History / Comment(s): toe amputation, liver Past Anesthesia/Blood Transfusion Reactions: No Reported Reaction Date of Last Stent Placement:: 2014 Past Psychological History: No Psychological Hx Reported Past Alcohol Use History: None Reported Past Drug Use History: None Reported - Past Family History Son(s) Family Medical History: Cancer Additional Family Medical History / Comment(s): leukemia General Exam General appearance: alert, in no apparent distress Head exam: Present: atraumatic, normocephalic Eye exam: Present: other ( prior injury to the right eye) ENT exam: Present: normal exam Neck exam: Present: normal inspection. Absent: tenderness, meningismus Cardiovascular Exam: Present: regular rate, normal rhythm GI/Abdominal exam: Present: soft. Absent: distended, tenderness Extremities exam: Present: other ( degloving injury of the left dorsal hand with exposed tendon, bone, muscle, no active hemorrhage. Range of motion of the fingers appears preserved, distal cap refill of all 5 digits.) Skin exam: Present: warm, dry Course Vital Signs 01/30/23 01/30/23 15:07 18:02 Temperature 97.2 F L 97.9 F Pulse Rate 58 L 72 Respiratory 24 20 Rate Blood Pressure 123/83 120/70 O2 Sat by Pulse 99 97 Oximetry Procedures - Laceration Laceration #1 Consent Obtained: verbal consent Indication: laceration Site: hand Size (cm): 8 Description: stellate, flap, avulsion, irregular, contaminated Depth: [id number] Anesthetic Used: lidocaine 1% Anesthesia Technique: local infiltration Amount (mls): 10 Pre-repair: wound explored, irrigated extensively Type of Sutures: nylon Size of Sutures: 5-0 Number of Sutures: 11 Technique: simple, interrupted Additional Comments: Large stellate flap laceration, with central avulsion and significant tissue loss - Orthopedic Splinting/Casting Injury #1 Side: left Upper Extremity Immobilizer: volar splint Medical Decision Making - Medical Decision Making Was pt. sent in by a medical professional or institution (, PA, FILLING OPERATOR, urgent care, hospital, or detention...) When possible be specific @ -[No] Did you speak to anyone other than the patient for history (EMS, parent, family, police, friend...)? What history was obtained from this source @ -[No] Did you review nursing and triage notes (agree or disagree)? Why? @ -[I reviewed and agree with nursing and triage notes] Were old charts reviewed (outside hosp., previous admission, EMS record, old EKG, old radiological studies, urgent care reports/EKG's, detention records)? Report findings @ -[No old charts were reviewed] Differential Diagnosis (chest pain, altered mental status, abdominal pain women, abdominal pain men, vaginal bleeding, weakness, fever, dyspnea, syncope, headache, dizziness, GI bleed, back pain, seizure, CVA, palpatations, mental health, musculoskeletal)? @ -Fracture, dislocation, avulsion, tendon injury, traumatic injury to left hand EKG interpreted by me (3pts min.). @ -[As above] X-rays interpreted by me (1pt min.). @X-ray of the left hand is negative for fracture CT interpreted by me (1pt min.). @ -[None done] U/S interpreted by me (1pt. min.). @ -[None done] What testing was considered but not performed or refused? (CT, X-rays, U/S, labs)? Why? @ -[None] What meds were considered but not given or refused? Why? @ -[None] Did you discuss the management of the patient with other professionals (professionals i.e. , PA, FILLING OPERATOR, lab, RT, psych nurse, social media campaign manager, psychiatric security nurse, teacher, infantry officer, case reviewer)? Give summary @ -[Case discussed with Dr. Mcnally, to arrange close outpatient follow-up, does recommend splinting the extremity. Was smoking cessation discussed for >3mins.? @ -[No] Was critical care preformed (if so, how long)? @ -[No] Were there social determinants of health that impacted care today? How? (Homelessness, low income, unemployed, alcoholism, drug addiction, transportation, low edu. Level, literacy, decrease access to med. care, penitentiary, rehab)? @ -[No] Was there de-escalation of care discussed even if they declined (Discuss DNR or withdrawal of care, Hospice)? DNR status @ -[No] What co-morbidities impacted this encounter? (DM, HTN, Smoking, COPD, CAD, Cancer, CVA, ARF, Chemo, Hep., AIDS, mental health diagnosis, sleep apnea, morbid obesity)? @ -Prior smoker, peripheral vascular disease Was patient admitted / discharged? Hospital course, mention meds given and route, prescriptions, significant lab abnormalities, going to OR and other pertinent info. @77-year-old male with traumatic injury to the left hand, degloving laceration of the dorsal surface with exposed bone, tendon, and muscle. There is a large central avulsion. Attempt is made to approximate the skin edges with nylon suture, there is difficulty with the repair secondary to a large central origin and missing skin. Patient does have range of motion of the 5 digits on the left hand with some limitation secondary to pain. X-ray is negative for fracture. The wound is copiously irrigated multiple liters of normal saline. He is given a dose of antibiotics in the emergency department. Tetanus is updated. I discussed case with orthopedics who will arrange for close outpatient follow-up. Undiagnosed new problem with uncertain prognosis? @ -[No] Drug Therapy requiring intensive monitoring for toxicity (Heparin, Nitro, Ins ulin, Cardizem)? @ -[No] Were any procedures done? @ -Laceration repair, splinting Diagnosis/symptom? @Skin avulsion, degloving of the dorsal left hand Acute, or Chronic, or Acute on Chronic? @Acute Uncomplicated (without systemic symptoms) or Complicated (systemic symptoms)? @ -[default] Side effects of treatment? @ -[No] Exacerbation, Progression, or Severe Exacerbation? @ -[No] Poses a threat to life or bodily function? How? (Chest pain, [place], DC, pneumonia, PE, COPD, DKA, ARF, appy, cholecystitis, CVA, Diverticulitis, Homicidal, Suicidal, threat to staff... and all critical care pts) @ -Low Risk Disposition Clinical Impression: Avulsion of skin of hand, Laceration Disposition: HOME SELF-CARE Condition: Fair Instructions (If sedation given, give patient instructions): Laceration (DC), Skin Avulsion (ED) Additional Instructions: Please follow up with hand surgery regarding suture removal. Prescriptions: Amoxic-Pot Clav 875-125Mg [Augmentin 875-125] 1 tab PO Q12HR 10 Days #20 tab HYDROcodone/APAP 5-325MG [Fenton 5-325] 1 tab PO Q6HR PRN #12 tab PRN Reason: Pain Is patient prescribed a controlled substance at d/c from ED?: No Referrals: Eleazar Naqvi MD [Primary Care Provider] - 1-2 days Dandre Shaffer DO [Doctor of Osteopathic Medicine] - 1-2 days Time of Disposition: 17:40
[2023-01-30 18:04] VITALS: BP 120/70; PULSE 72; RESP 20; TEMP 97.9
== END 2023-01-30 18:02 | disposition home or self-care (01) ==
LOC: EC 15:02
DX: S61.412A Laceration without foreign body of left hand, initial encounter (principal); E11.22 Type 2 diabetes mellitus with diabetic chronic kidney disease; E78.5 Hyperlipidemia, unspecified; I10 Essential (primary) hypertension; I25.2 Old myocardial infarction; Z79.82 Long term (current) use of aspirin; Z79.02 Long term (current) use of antithrombotics/antiplatelets; Z79.899 Other long term (current) drug therapy; Z23 Encounter for immunization; W20.8XXA Other cause of strike by thrown, projected or falling object, initial encounter
CPT/HCPCS: 73130; 90715; 99284; 96365; 96375; 90471; 12004; J0690; J2001; J1170